=== PATIENT | female | born 1960 | race Caucasian/White ===

== ENCOUNTER → 2018-10-03 | Outpatient (CLI) | payer OTHER ==
--- NOTE | 2018-10-03 12:45 | XR ---
EXAMINATION TYPE: XR chest 2V DATE OF EXAM: 10/03/2018 COMPARISON: 05/04/2017 INDICATION: COPD TECHNIQUE: Frontal and lateral views of the chest are obtained. FINDINGS: The heart size is normal. The pulmonary vasculature is normal. The lungs are clear. IMPRESSION: 1. No acute pulmonary process.
== END | disposition home or self-care (01) ==
LOC: RADXRYALE 12:03
PROVIDERS: ATTEND Internal Medicine
DX: J44.9 Chronic obstructive pulmonary disease, unspecified (principal)
CPT/HCPCS: 71046

== ENCOUNTER → 2019-10-24 | Outpatient (CLI) | payer OTHER | END | disposition home or self-care (01) | LOC: LABWHC1 11:22 | PROVIDERS: ATTEND Internal Medicine | DX: R05 Cough (principal) ==

== ENCOUNTER → 2020-03-11 | Outpatient (CLI) | payer OTHER ==
--- NOTE | 2020-03-11 11:07 | XR ---
EXAMINATION TYPE: XR chest 2V DATE OF EXAM: 03/11/2020 COMPARISON: 10/03/18 HISTORY: Shortness of breath TECHNIQUE: Frontal and lateral views of the chest are obtained. FINDINGS: Scattered senescent parenchymal changes noted. Hyperinflation compatible with COPD. No evidence for infiltrate. No evidence for atelectasis. Heart size is stable. Mediastinal structures are stable and grossly unremarkable. No evidence for hilar prominence. Degenerative changes dorsal spine. IMPRESSION: 1. No evidence for acute pulmonary disease.
== END | disposition home or self-care (01) ==
LOC: RADXRYALE 10:45
PROVIDERS: ATTEND Internal Medicine
DX: R05 Cough (principal)
CPT/HCPCS: 71046

== ENCOUNTER → 2021-01-02 | Outpatient (CLI) | payer OTHER ==
--- NOTE | 2021-01-02 16:15 | XR ---
EXAMINATION TYPE: XR chest 2V DATE OF EXAM: 01/02/2021 COMPARISON: 03/11/2020 INDICATION: Chronic dyspnea from COPD TECHNIQUE: Frontal and lateral views of the chest are obtained. FINDINGS: The heart size is normal. The pulmonary vasculature is normal. The lungs are clear. IMPRESSION: 1. No acute pulmonary process.
== END | disposition home or self-care (01) ==
LOC: RADXRYALE 10:53
PROVIDERS: ATTEND Internal Medicine Sleep Medicine
DX: J44.9 Chronic obstructive pulmonary disease, unspecified (principal)
CPT/HCPCS: 71046

== ENCOUNTER 2021-12-01 10:51 | Emergency (ER) | payer OTHER ==
[2021-12-01] MEDS ORDERED: FAMOTIDINE 20 MG/2 ML VIAL IV STA (10:56)
[2021-12-01] MEDS ORDERED: diphenhydrAMINE 50 MG/ML 1 ML VIAL IVP STA (10:57)
[2021-12-01 11:02] VITALS: RESP 18; TEMP 98.1
--- NOTE | 2021-12-01 11:03 | ED ---
General Adult HPI - General Stated complaint: allergic reaction Time Seen by Provider: 12/01/21 10:51 Source: patient, EMS, RN notes reviewed Mode of arrival: EMS Limitations: no limitations - History of Present Illness Initial comments: 60-year-old female presents emergency Department via EMS from PCPs office for ALLERGIC reaction. Patient that she been having tomorrow nausea vomiting issues. States that she's gone last night took her Zofran EEG usual. Patient states that she started having upper lip swelling noticed this morning around 7 AM. She was outside prior to this. Patient called PCPs office in which she presented there few hours after symptoms started. Patient was given a shot of steroids by PCP, Benadryl by EMS. Patient states that she is starting to feel better she states her upper lip was swollen which remains a swollen, slightly itchy. She denies any difficulty breathing difficulty swallowing no tongue swelling. HEENT by EMS and police to be the felt there was a wound or puncture site at her upper lip. - Related Data Home Medications Medication Instructions Recorded Confirmed Diazepam [Valium] 10 mg PO BID PRN 01/15/16 02/06/16 Lovastatin [Mevacor] 40 mg PO HS 01/15/16 02/06/16 OLANZapine [ZyPREXA] 5 mg PO HS 01/15/16 02/06/16 OLANZapine [ZyPREXA] 20 mg PO HS 01/15/16 02/06/16 Omeprazole [PriLOSEC] 20 mg PO AC-BRKFST 01/15/16 02/06/16 buPROPion XL [Wellbutrin Xl] 150 mg PO QAM 01/15/16 02/06/16 gemfibroziL [Lopid] 600 mg PO AC-BID 01/15/16 02/06/16 lisinopriL [Zestril] 5 mg PO QAM 01/15/16 02/06/16 metFORMIN HCL [Glucophage] 1,000 mg PO BID 01/15/16 02/06/16 traZODone HCL [Desyrel] 100 mg PO HS 01/15/16 02/06/16 Previous Rx's Medication Instructions Recorded HYDROcodone/APAP 7.5-325MG [[place] 1 each PO Q4H PRN #60 tab 02/06/16 7.5] predniSONE 50 mg PO DAILY #3 tab 12/01/21 Allergies Allergy/AdvReac Type Severity Reaction Status Date / Time clindamycin HCl Allergy Rash/Hives Verified 12/01/21 11:01 [From Cleocin] clindamycin palmitate HCl Allergy Rash/Hives Verified 12/01/21 11:01 [From Cleocin] clindamycin phosphate Allergy Rash/Hives Verified 12/01/21 11:01 [From Cleocin] Review of Systems ROS Statement: Those systems with pertinent positive or pertinent negative responses have been documented in the HPI. ROS Other: All systems not noted in ROS Statement are negative. Past Medical History Past Medical History: Diabetes Mellitus, Hyperlipidemia Additional Past Medical History / Comment(s): NAUSEA FOR ABOUT A MONTH-VOMITING OFF & ON,LOOSE BLACK STOOL AT TIMES. HAS LOST 15 LBS IN A SHORT TIME WITHOUT TRYING History of Any Multi-Drug Resistant Organisms: None Reported Past Surgical History: Section, Tonsillectomy, Tubal Ligation Additional Past Surgical History / Comment(s): LAPAROSCOPIC, COLONOSCOPY X2 WITH POLYPS REMOVED Past Anesthesia/Blood Transfusion Reactions: No Reported Reaction Past Psychological History: Bipolar, Depression Past Alcohol Use History: Rare Additional Past Alcohol Use History / Comment(s): SMOKER SINCE AGE 14 -1- 1 1/2 PPD Past Drug Use History: None Reported - Past Family History Mother Family Medical History: Cancer, Diabetes Mellitus Additional Family Medical History / Comment(s): ESOPHAGEAL CA- LUNG CA Father Family Medical History: Hypertension Sister(s) Family Medical History: Cancer Additional Family Medical History / Comment(s): SKIN CA General Exam Limitations: no limitations General appearance: alert, in no apparent distress Head exam: Present: atraumatic, normocephalic, normal inspection Eye exam: Present: normal appearance, PERRL, EOMI. Absent: scleral icterus, conjunctival injection, periorbital swelling ENT exam: Present: mucous membranes moist, TM's normal bilaterally, normal external ear exam. Absent: normal oropharynx (Upper lip swelling noted small puncture wound, no tongue swelling no difficult to swan secretions there is some exudate posterior pharynx) Neck exam: Present: normal inspection, full ROM. Absent: tenderness, meningismus, lymphadenopathy Respiratory exam: Present: normal lung sounds bilaterally. Absent: respiratory distress, wheezes, rales, rhonchi, stridor Cardiovascular Exam: Present: regular rate, normal rhythm, normal heart sounds. Absent: systolic murmur, diastolic murmur, rubs, gallop, clicks Neurological exam: Present: alert Skin exam: Present: warm, dry, intact, normal color. Absent: rash Course Vital Signs 12/01/21 12/01/21 12/01/21 10:53 11:04 11:47 Temperature 98.1 F Pulse Rate 80 68 Respiratory 18 18 18 Rate Blood Pressure 138/74 118/79 O2 Sat by Pulse 98 97 Oximetry 12/01/21 12:35 Temperature Pulse Rate 76 Respiratory 18 Rate Blood Pressure 138/85 O2 Sat by Pulse 97 Oximetry Medical Decision Making - Medical Decision Making 60-year-old female presented for upper lip swelling. Patient has not had any worsening symptoms. Patient is stable at this time. It is concerning for probable Kyle inhibitor induced angioedema. Patient will be discharged is advised to discontinue KYLE inhibitor will contact her PCP regarding further medication changes. 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 Prescriptions: predniSONE 50 mg PO DAILY #3 tab Is patient prescribed a controlled substance at d/c from ED?: No Referrals: Pallavi English MD [Primary Care Provider] - 1-2 days Time of Disposition: 13:24
[2021-12-01] MEDS ORDERED: METOCLOPRAMIDE 5 MG/ML 2 ML VIAL IVP STA (11:58)
[2021-12-01 12:37] VITALS: BP 138/85; PULSE 76
== END 2021-12-01 13:33 | disposition home or self-care (01) ==
LOC: EC 10:51
DX: T78.3XXA Angioneurotic edema, initial encounter (principal); T46.4X5A Adverse effect of angiotensin-converting-enzyme inhibitors, initial encounter; E11.9 Type 2 diabetes mellitus without complications; E78.5 Hyperlipidemia, unspecified; F31.9 Bipolar disorder, unspecified; Z79.84 Long term (current) use of oral hypoglycemic drugs; Z79.899 Other long term (current) drug therapy
CPT/HCPCS: 99284; 96374; 96375 ×2; J1200; J2765

== ENCOUNTER → 2021-12-09 | Outpatient (CLI) | payer OTHER ==
[2021-12-09 18:32] LABS: African American GFR (CKD) 79.4 (60.0-200.0); Blood Urea Nitrogen 19.1 mg/dL (9.0-27.0); Non-African American GFR(CKD) 68.5 (60.0-200.0); Potassium 4.1 mmol/L (3.5-5.5)
== END | disposition home or self-care (01) ==
LOC: LABWHC1 11:20
PROVIDERS: ATTEND Internal Medicine
DX: Z00.00 Encounter for general adult medical examination without abnormal findings (principal); E87.5 Hyperkalemia; E83.52 Hypercalcemia
CPT/HCPCS: 36415; 82310; 82565; 83970; 84132; 84520

== ENCOUNTER 2022-09-14 04:17 | Observation (INO) | payer MEDICARE ==
[2022-09-14 04:24] VITALS: TEMP 98.2
[2022-09-14] MEDS ORDERED: IPRATROPIUM-ALBUTEROL 3 ML NEB INHALATION STA (04:38)
[2022-09-14] MEDS ORDERED: DEXAMETHASONE SOD PHOSPHATE 10 MG/ML 1 ML VIAL IVP STA (04:40)
[2022-09-14 05:01] LABS: Basophils % (A) 0 %; Eosinophils # (A) 0.3 k/uL (0-0.7); Eosinophils % (A) 3 %; HCT 46.8 % (34.0-46.0); HGB 15.4 gm/dL (11.4-16.0); Lymphocytes # (A) 1.4 k/uL (1.0-4.8); Lymphocytes % (A) 16 %; MCH 28.2 pg (25.0-35.0); MCHC 32.9 g/dL (31.0-37.0); MCV 85.7 fL (80.0-100.0); Mean Platelet Volume 8.5; Monocytes # (A) 0.3 k/uL (0-1.0); Monocytes % (A) 4 %; Neutrophils # (A) 6.8 k/uL (1.3-7.7); Neutrophils % (A) 76 %; Platelet Count 260 k/uL (150-450); RBC 5.46 m/uL (3.80-5.40); RDW 15.6 % (11.5-15.5); WBC 8.9 k/uL (3.8-10.6)
--- NOTE | 2022-09-14 05:11 | ED ---
General Adult HPI - General Chief complaint: Chest Pain Stated complaint: Chest Pain Time Seen by Provider: 09/14/22 04:25 Source: patient Mode of arrival: wheelchair Limitations: no limitations - History of Present Illness Initial comments: This is a 61-year-old female with a past medical history including COPD, major depressive disorder presented to the emergency department for left-sided chest pain. The patient stated that this chest pain is worse with deep breathing and stated that it is sharp in nature when she does take a deep breath. The patient stated that she has a dull ache without deep breathing and stated that the pain does not radiate. The patient did state that she had some wheezing noted that she gave her several breathing treatment with minimal relief. The patient denied any lightheadedness or dizziness as well as any pain or numbness down the left side of her arm or left jaw. The patient stated that she has never had pain like this before. - Related Data Home Medications Medication Instructions Recorded Confirmed Diazepam [Valium] 10 mg PO BID PRN 01/15/16 02/06/16 Lovastatin [Mevacor] 40 mg PO HS 01/15/16 02/06/16 OLANZapine [ZyPREXA] 5 mg PO HS 01/15/16 02/06/16 OLANZapine [ZyPREXA] 20 mg PO HS 01/15/16 02/06/16 Omeprazole [PriLOSEC] 20 mg PO AC-BRKFST 01/15/16 02/06/16 buPROPion XL [Wellbutrin Xl] 150 mg PO QAM 01/15/16 02/06/16 gemfibroziL [Lopid] 600 mg PO AC-BID 01/15/16 02/06/16 lisinopriL [Zestril] 5 mg PO QAM 01/15/16 02/06/16 metFORMIN HCL [Glucophage] 1,000 mg PO BID 01/15/16 02/06/16 traZODone HCL [Desyrel] 100 mg PO HS 01/15/16 02/06/16 Previous Rx's Medication Instructions Recorded HYDROcodone/APAP 7.5-325MG [[place] 1 each PO Q4H PRN #60 tab 02/06/16 7.5] predniSONE 50 mg PO DAILY #3 tab 12/01/21 Allergies Allergy/AdvReac Type Severity Reaction Status Date / Time clindamycin HCl Allergy Rash/Hives Verified 09/14/22 04:22 [From Cleocin] clindamycin palmitate HCl Allergy Rash/Hives Verified 09/14/22 04:22 [From Cleocin] clindamycin phosphate Allergy Rash/Hives Verified 09/14/22 04:22 [From Cleocin] lisinopril Allergy Anaphylaxis Verified 09/14/22 04:22 Review of Systems ROS Statement: Those systems with pertinent positive or pertinent negative responses have been documented in the HPI. ROS Other: All systems not noted in ROS Statement are negative. Past Medical History Past Medical History: Diabetes Mellitus, Hyperlipidemia Additional Past Medical History / Comment(s): NAUSEA FOR ABOUT A MONTH-VOMITING OFF & ON,LOOSE BLACK STOOL AT TIMES. HAS LOST 15 LBS IN A SHORT TIME WITHOUT TRYING History of Any Multi-Drug Resistant Organisms: None Reported Past Surgical History: Section, Tonsillectomy, Tubal Ligation Additional Past Surgical History / Comment(s): LAPAROSCOPIC, COLONOSCOPY X2 WITH POLYPS REMOVED Past Anesthesia/Blood Transfusion Reactions: No Reported Reaction Past Psychological History: Bipolar, Depression Past Alcohol Use History: Rare Past Drug Use History: None Reported - Past Family History Mother Family Medical History: Cancer, Diabetes Mellitus Additional Family Medical History / Comment(s): ESOPHAGEAL CA- LUNG CA Father Family Medical History: Hypertension Sister(s) Family Medical History: Cancer Additional Family Medical History / Comment(s): SKIN CA General Exam Limitations: no limitations General appearance: alert, in no apparent distress Head exam: Present: atraumatic, normocephalic, normal inspection Eye exam: Present: normal appearance, PERRL Pupils: Present: normal accommodation ENT exam: Present: normal exam, normal oropharynx, mucous membranes moist Neck exam: Present: normal inspection, full ROM Respiratory exam: Present: wheezes, decreased breath sounds Cardiovascular Exam: Present: regular rate, normal rhythm, normal heart sounds GI/Abdominal exam: Present: soft, normal bowel sounds Extremities exam: Present: normal inspection, full ROM Back exam: Present: normal inspection, full ROM Neurological exam: Present: alert, oriented X3, CN II-XII intact Psychiatric exam: Present: normal affect, normal mood Skin exam: Present: warm, dry Course Vital Signs 09/14/22 09/14/22 09/14/22 04:22 04:30 04:41 Temperature 98.2 F Pulse Rate 80 75 87 Respiratory 16 16 Rate Blood Pressure 158/79 O2 Sat by Pulse 97 98 Oximetry 09/14/22 05:00 Temperature Pulse Rate 88 Respiratory Rate Blood Pressure O2 Sat by Pulse Oximetry EKG Findings - EKG Comments: EKG Findings:: An EKG was obtained and was interpreted by myself showing a rate of 67, CT interval of 118, QRS duration of 86 and QTC of 417. This EKG showed a normal sinus rhythm with no ST segment elevation or depression noted. Medical Decision Making - Medical Decision Making Was pt. sent in by a medical professional or institution (, MOE, VETERINARY PRACTICE MANAGER, urgent care, hospital, or intermediate...) When possible be specific @ -No Did you speak to anyone other than the patient for history (EMS, parent, family, police, friend...)? What history was obtained from this source @ -No Did you review nursing and triage notes (agree or disagree)? Why? @ -I reviewed and agree with nursing and triage notes Were old charts reviewed (outside hosp., previous admission, EMS record, old EKG, old radiological studies, urgent care reports/EKG's, intermediate records)? Report findings @ -No old charts were reviewed Differential Diagnosis (chest pain, altered mental status, abdominal pain women, abdominal pain men, vaginal bleeding, weakness, fever, dyspnea, syncope, head ache, dizziness, GI bleed, back pain, seizure, CVA, palpatations, mental health)? @ -ACS, pneumonia, COPD exacerbation EKG interpreted by me (3pts min.). @ -As above X-rays interpreted by me (1pt min.). @ -Chest x-ray was obtained and was interpreted by myself showing chronic emphysematous change without acute coronary process. There is possible new left basilar pulmonary nodule. CT interpreted by me (1pt min.). @ -None done U/S interpreted by me (1pt. min.). @ -None done What testing was considered but not performed or refused? (CT, X-rays, U/S, labs)? Why? @ -None What meds were considered but not given or refused? Why? @ -None Did you discuss the management of the patient with other professionals (professionals i.e. , MOE, VETERINARY PRACTICE MANAGER, lab, RT, psych nurse, social worker masters, yolk spray drier, teacher, safety and security officer, case consultant)? Give summary @ -Yes, admitting team was contacted regarding patient admission Was smoking cessation discussed for >3mins.? @ -Yes Was critical care preformed (if so, how long)? @ -No Were there social determinants of health that impacted care today? How? (Homelessness, low income, unemployed, alcoholism, drug addiction, transportation, low edu. Level, literacy, decrease access to med. care, nursing home, rehab)? @ -No Was there de-escalation of care discussed even if they declined (Discuss DNR or withdrawal of care, Hospice)? DNR status @ -No What co-morbidities impacted this encounter? (DM, HTN, Smoking, COPD, CAD, Cancer, CVA, ARF, Chemo, Hep., AIDS, mental health diagnosis, sleep apnea, morbid obesity)? @ -COPD, anxiety, major depressive disorder Was patient admitted / discharged? Hospital course, mention meds given and route, prescriptions, significant lab abnormalities, going to OR and other pertinent info. @ -The patient was seen and evaluated in emergency department. Physical exam, the patient was resting in bed in mild distress secondary to left-sided chest pain. Vital signs admission were stable. The patient did have wheezing on exam likely a mild COPD exacerbation however the patient had continued left-sided chest pain upon reevaluation. Laboratory workup was within normal limits and due to the patient's continued pain, the patient did agree to being observed for cardiology evaluation. The patient was placed observation in stable condition. Undiagnosed new problem with uncertain prognosis? @ -No Drug Therapy requiring intensive monitoring for toxicity (Heparin, Nitro, Insulin, Cardizem)? @ -No Were any procedures done? @ -No Diagnosis/symptom? @ -Chest pain, rule out ACS Acute, or Chronic, or Acute on Chronic? @ -Acute Uncomplicated (without systemic symptoms) or Complicated (systemic symptoms)? @ -Complicated Side effects of treatment? @ -No Exacerbation, Progression, or Severe Exacerbation? @ -No Poses a threat to life or bodily function? How? (Chest pain, [place], [place], pneumonia, PE, COPD, DKA, ARF, appy, cholecystitis, CVA, Diverticulitis, Homicidal, Suicidal, threat to staff... and all critical care pts) @ -Yes, ACS can lead to end organ damage and possible . Diagnosis/symptom? @ -COPD exacerbation Acute, or Chronic, or Acute on Chronic? @ -Acute Uncomplicated (without systemic symptoms) or Complicated (systemic symptoms)? @ -Uncomplicated Side effects of treatment? @ -none Exacerbation, Progression, or Severe Exacerbation] @ -Mild exacerbation Poses a threat to life or bodily function? @ -no - Lab Data Result diagrams: 09/14/22 04:36 09/14/22 04:36 Lab Results 09/14/22 09/14/22 09/14/22 Range/Units 04:36 04:36 04:36 WBC 8.9 (3.8-10.6) k/uL RBC 5.46 H (3.80-5.40) m/uL Hgb 15.4 (11.4-16.0) gm/dL Hct 46.8 H (34.0-46.0) % MCV 85.7 (80.0-100.0) fL MCH 28.2 (25.0-35.0) pg MCHC 32.9 (31.0-37.0) g/dL RDW 15.6 H (11.5-15.5) % Plt Count 260 (150-450) k/uL MPV 8.5 Neutrophils % 76 % Lymphocytes % 16 % Monocytes % 4 % Eosinophils % 3 % Basophils % 0 % Neutrophils # 6.8 (1.3-7.7) k/uL Lymphocytes # 1.4 (1.0-4.8) k/uL Monocytes # 0.3 (0-1.0) k/uL Eosinophils # 0.3 (0-0.7) k/uL Basophils # 0.0 (0-0.2) k/uL PT 9.7 (9.0-12.0) sec INR 0.9 (<1.2) APTT 24.7 (22.0-30.0) sec D-Dimer 0.48 (<0.60) mg/L FEU Sodium 142 (137-145) mmol/L Potassium 4.4 (3.5-5.1) mmol/L Chloride 108 H (98-107) mmol/L Carbon Dioxide 19 L (22-30) mmol/L Anion Gap 15 mmol/L BUN 17 (7-17) mg/dL Creatinine 0.90 (0.52-1.04) mg/dL Est GFR (CKD-EPI)AfAm 79 (>60 ml/min/1.73 sqM) Est GFR (CKD-EPI)NonAf 69 (>60 ml/min/1.73 sqM) Glucose 108 H (74-99) mg/dL Calcium 10.5 H (8.4-10.2) mg/dL Magnesium 1.8 (1.6-2.3) mg/dL Total Bilirubin 0.6 (0.2-1.3) mg/dL AST 22 (14-36) U/L ALT 19 (4-34) U/L Alkaline Phosphatase 168 H (38-126) U/L Troponin I (0.000-0.034) ng/mL Total Protein 8.5 H (6.3-8.2) g/dL Albumin 5.0 (3.5-5.0) g/dL 09/14/22 Range/Units 04:36 WBC (3.8-10.6) k/uL RBC (3.80-5.40) m/uL Hgb (11.4-16.0) gm/dL Hct (34.0-46.0) % MCV (80.0-100.0) fL MCH (25.0-35.0) pg MCHC (31.0-37.0) g/dL RDW (11.5-15.5) % Plt Count (150-450) k/uL MPV Neutrophils % % Lymphocytes % % Monocytes % % Eosinophils % % Basophils % % Neutrophils # (1.3-7.7) k/uL Lymphocytes # (1.0-4.8) k/uL Monocytes # (0-1.0) k/uL Eosinophils # (0-0.7) k/uL Basophils # (0-0.2) k/uL PT (9.0-12.0) sec INR (<1.2) APTT (22.0-30.0) sec D-Dimer (<0.60) mg/L FEU Sodium (137-145) mmol/L Potassium (3.5-5.1) mmol/L Chloride (98-107) mmol/L Carbon Dioxide (22-30) mmol/L Anion Gap mmol/L BUN (7-17) mg/dL Creatinine (0.52-1.04) mg/dL Est GFR (CKD-EPI)AfAm (>60 ml/min/1.73 sqM) Est GFR (CKD-EPI)NonAf (>60 ml/min/1.73 sqM) Glucose (74-99) mg/dL Calcium (8.4-10.2) mg/dL Magnesium (1.6-2.3) mg/dL Total Bilirubin (0.2-1.3) mg/dL AST (14-36) U/L ALT (4-34) U/L Alkaline Phosphatase (38-126) U/L Troponin I <0.012 (0.000-0.034) ng/mL Total Protein (6.3-8.2) g/dL Albumin (3.5-5.0) g/dL Disposition Clinical Impression: Chest pain, COPD exacerbation Disposition: ADMITTED IP TO THIS HOSP Condition: Stable Is patient prescribed a controlled substance at d/c from ED?: No Referrals: Fox Barker MD [STAFF PHYSICIAN] - 1-2 days Time of Disposition: 06:00 Decision to Admit Reason: Admit from EC Decision Date: 09/14/22 Decision Time: 06:00
[2022-09-14 05:12] LABS: Calcium 10.5 mg/dL (8.4-10.2); Magnesium 1.8 mg/dL (1.6-2.3); Potassium 4.4 mmol/L (3.5-5.1); Total Bilirubin 0.6 mg/dL (0.2-1.3); Total Protein 8.5 g/dL (6.3-8.2)
[2022-09-14 05:24] LABS: INR 0.9 (<1.2); Partial Thromboplastin Time 24.7 sec (22.0-30.0); Prothrombin Time 9.7 sec (9.0-12.0)
--- NOTE | 2022-09-14 05:45 | XR ---
EXAMINATION TYPE: XR chest 2V DATE OF EXAM: 09/14/2022 COMPARISON: Chest x-ray July 29, 2022 HISTORY: Chest pain. TECHNIQUE: Frontal and lateral views of the chest are obtained. FINDINGS: There is chronic emphysematous change redemonstrated without suspicious new focal air spac e opacity, pleural effusion, or pneumothorax seen. The cardiac silhouette size is stable and within normal limits. Slightly more prominence along inferior left heart border. Consider chest CT to exclud e subtle nodule at this level. The osseous structures are intact. Overlying EKG leads on current stud y. IMPRESSION: Chronic emphysematous change without acute pulmonary process. Possible new left basilar pulmonary nodule. Follow-up advised.
[2022-09-14] MEDS ORDERED: NALOXONE 0.4 MG/ML 1 ML VIAL IV PRN (06:06)
[2022-09-14] MEDS ORDERED: DOBUTamine DRIP for NUC MED 500 MG in DEXTROSE/WATER 1 250ML.BAG IV PRN (07:53)
[2022-09-14 08:47] LABS: Glucose,Whole Blood 132 mg/dL (70-110)
[2022-09-14] MEDS ORDERED: diazePAM 5 MG TAB PO PRN (09:32)
[2022-09-14] MEDS ORDERED: DEXTROSE 50% SYRINGE 50 ML IVP PRN ×2 (09:37)
[2022-09-14] MEDS ORDERED: FENOFIBRATE 160 MG TAB PO SCH (10:00)
[2022-09-14 11:20] VITALS: BP 142/68; PULSE 78; RESP 31
--- NOTE | 2022-09-14 12:03 | CA ---
Transthoracic Echo Report Name: Sarah Beth Arshad Age: 61 Gender: F : 1960 Exam Date: 09/14/2022 10:03 Exam Location: [facility] Ht (in): 62 Wt (lb): 143 Ordering Physician: Edmar Kolb MD ([id number]) Attending/Referring Phys: Cortes JOVEL [employer] Procedure CPT: Indications: Chest Pain Cardiac Hx: Synd. Tietze; Lumbago Technical Quality: Fair Contrast 1: Total Dose (mL): Contrast 2: Total Dose (mL): MEASUREMENTS (Male / Female) Normal Values 2D ECHO LV Diastolic Diameter PLAX 5.1 cm 4.2 - 5.9 / 3.9 - 5.3 cm LV Systolic Diameter PLAX 3.3 cm LV Fractional Shortening PLAX 34.5 % IVS Diastolic Thickness 0.9 cm 0.6 - 1.0 / 0.6 - 0.9 cm IVS Systolic Thickness 1.3 cm LVPW Diastolic Thickness 1.0 cm 0.6 - 1.0 / 0.6 - 0.9 cm LVPW Systolic Thickness 1.6 cm LV Relative Wall Thickness 0.4 LVOT Diameter 1.8 cm LA Systolic Diameter LX 2.8 cm 3.0 - 4.0 / 2.7 - 3.8 cm LV Diastolic Volume MOD BP 60.4 cm??? 67 - 155 / 56 - 104 cm??? LV Systolic Volume MOD BP 24.6 cm??? 22 - 58 / 19 - 49 cm??? LV Ejection Fraction MOD BP 59.2 % >= 55 % LV Stroke Volume MOD BP 35.8 cm??? LV Diastolic Volume MOD 4C 56.5 cm??? LV Systolic Volume MOD 4C 24.0 cm??? LV Ejection Fraction MOD 4C 57.6 % LV Stroke Volume MOD 4C 32.5 cm??? LV Diastolic Length 4C 6.1 cm LV Systolic Length 4C 5.1 cm LV Diastolic Volume MOD 2C 54.7 cm??? LV Systolic Volume MOD 2C 23.2 cm??? LV Ejection Fraction MOD 2C 57.6 % LV Stroke Volume MOD 2C 31.5 cm??? LV Diastolic Length 2C 7.2 cm LV Systolic Length 2C 5.6 cm M-MODE Aortic Root Diameter MM 2.8 cm LA Systolic Diameter MM 2.6 cm LA Ao Ratio MM 0.9 MV E Point Septal Separation 1.2 cm AV Cusp Separation MM 1.5 cm DOPPLER AV Peak Velocity 131.4 cm/s AV Peak Gradient 6.9 mmHg LVOT Peak Velocity 114.3 cm/s LVOT Peak Gradient 5.2 mmHg AV Area Cont Eq pk 2.1 cm??? MV Deceleration Mccreary 230.1 cm/s??? Mitral E Point Velocity 51.5 cm/s Mitral A Point Velocity 70.7 cm/s Mitral E to A Ratio 0.7 MV Deceleration Time 224.0 ms MV E' Velocity 9.8 cm/s Mitral E to MV E' Ratio 5.3 TR Peak Velocity 99.9 cm/s TR Peak Gradient 4.0 mmHg Right Ventricular Systolic Press 9.0 mmHg PV Peak Velocity 111.1 cm/s PV Peak Gradient 4.9 mmHg FINDINGS Left Ventricle Left ventricular ejection fraction is estimated at 50-55 %. Grade 1 diastolic dysfunction. Right Ventricle Normal right ventricular size and function. Right Atrium Normal right atrial size. Left Atrium Normal left atrial size. Mitral Valve Mitral valve thickened. Trace to mild mitral regurgitation. Aortic Valve Trileaflet aortic valve. Diffuse thickening (sclerosis) of the aortic valve cusps without reduced excursion. Tricuspid Valve Mild tricuspid regurgitation. Pulmonic Valve Pulmonic valve not well visualized. Pericardium Normal pericardium. No pericardial effusion. Aorta Normal size aortic root and proximal ascending aorta. CONCLUSIONS Normal LV systolic function Previewed by: Dr. Edmar Kolb MD (Electronically Signed) Final Date: 14 September 2022 12:02
[2022-09-14] MEDS ORDERED: INSULIN ASPART (NovoLOG) 100 UNIT/ML VIAL SQ SCH (12:30)
--- NOTE | 2022-09-14 12:43 | P.HPIM ---
History of Present Illness H&P Date: 09/14/22 History of present illness; patient is 61-year-old lady with past medical significant for COPD, major depression who presented to the ER because of chest pain. Patient stated that this pain started yesterday, central in location, sharp in nature and exacerbated by taking deep breaths, patient stated that pain was radiating to left arm and jaw. Patient has been noticing shortness of breath, stated that she gets short of breath on minimal exertion and was wheezing and gave breathing treatment without any relief. Because of this Chest Pain and Shortness of Breath, Patient Came to the ER. Initial lab work done in the ER showed WBC 8.9, hemoglobin 8.4, platelet count 260, INR 0.9, sodium 142, potassium 4.4, BUN 17, creatinine 0.9, initial troponin 0.012 Initial chest x-ray showed chronic emphysematous changes without acute pulmonary process Initial EKG done did not show any acute segment changes or T-wave inversions REVIEW OF SYSTEMS: CONSTITUTIONAL: No fever, no malaise, no fatigue. HEENT: No recent visual problems or hearing problems. Denied any sore throat. CARDIOVASCULAR: As mentioned in HPI PULMONARY: No cough, no hemoptysis. GASTROINTESTINAL: No diarrhea, no nausea, no vomiting, no abdominal pain. NEUROLOGICAL: No headaches, no weakness, no numbness. HEMATOLOGICAL: Denies any bleeding or petechiae. GENITOURINARY: Denies any burning micturition, frequency, or urgency. MUSCULOSKELETAL/RHEUMATOLOGICAL: Denies any joint pain, swelling, or any muscle pain. ENDOCRINE: Denies any polyuria or polydipsia. The rest of the 14-point review of systems is negative. PHYSICAL EXAMINATION: GENERAL: The patient is alert and oriented x3, not in any acute distress. Well developed, well nourished. HEENT: Pupils are round and equally reacting to light. EOMI. No scleral icterus. No conjunctival pallor. Normocephalic, atraumatic. No pharyngeal erythema. No thyromegaly. CARDIOVASCULAR: S1 and S2 present. No murmurs, rubs, or gallops. PULMONARY: Chest is clear to auscultation, no wheezing or crackles. ABDOMEN: Soft, nontender, nondistended, normoactive bowel sounds. No palpable organomegaly. MUSCULOSKELETAL: No joint swelling or deformity. EXTREMITIES: No cyanosis, clubbing, or pedal edema. NEUROLOGICAL: Gross neurological examination did not reveal any focal deficits. SKIN: No rashes. Assessment and plan Chest pain COPD Major depression Plan; Monitor vital signs Monitor CBC Monitor CMP Continue telemetry monitoring Trend troponins 2-D echo ordered Resume home meds Cardiology consult DVT prophylaxis: Past Medical History Past Medical History: Diabetes Mellitus, Hyperlipidemia Additional Past Medical History / Comment(s): NAUSEA FOR ABOUT A MONTH-VOMITING OFF & ON,LOOSE BLACK STOOL AT TIMES. HAS LOST 15 LBS IN A SHORT TIME WITHOUT TRYING History of Any Multi-Drug Resistant Organisms: None Reported Past Surgical History: Section, Tonsillectomy, Tubal Ligation Additional Past Surgical History / Comment(s): LAPAROSCOPIC, COLONOSCOPY X2 WITH POLYPS REMOVED Past Anesthesia/Blood Transfusion Reactions: No Reported Reaction Past Psychological History: Bipolar, Depression Past Alcohol Use History: Rare Past Drug Use History: None Reported - Past Family History Mother Family Medical History: Cancer, Diabetes Mellitus Additional Family Medical History / Comment(s): ESOPHAGEAL CA- LUNG CA Father Family Medical History: Hypertension Sister(s) Family Medical History: Cancer Additional Family Medical History / Comment(s): SKIN CA Medications and Allergies Home Medications Medication Instructions Recorded Confirmed Type Diazepam [Valium] 10 mg PO BID PRN 01/15/16 09/14/22 History Lovastatin [Mevacor] 40 mg PO DAILY 01/15/16 09/14/22 History gemfibroziL [Lopid] 600 mg PO AC-BID 01/15/16 09/14/22 History Dapagliflozin Propanediol [Farxiga] 10 mg PO DAILY 09/14/22 09/14/22 History FLUoxetine HCL [PROzac] 40 mg PO DAILY 09/14/22 09/14/22 History Meloxicam [Mobic] 7.5 mg PO DAILY 09/14/22 09/14/22 History OLANZapine [ZyPREXA] 15 mg PO DAILY 09/14/22 09/14/22 History Pantoprazole [Protonix] 40 mg PO DAILY 09/14/22 09/14/22 History Pioglitazone [Actos] 45 mg PO DAILY 09/14/22 09/14/22 History Tirzepatide [Mounjaro] 2.5 mg SQ SA 09/14/22 09/14/22 History buPROPion XL [Wellbutrin XL] 300 mg PO PC-LUNCH 09/14/22 09/14/22 History metFORMIN HCL 500 mg PO BID 09/14/22 09/14/22 History traZODone HCL [Desyrel] 50 - 100 mg PO HS PRN 09/14/22 09/14/22 History Allergies Allergy/AdvReac Type Severity Reaction Status Date / Time clindamycin HCl Allergy Rash/Hives Verified 09/14/22 07:22 [From Cleocin] clindamycin palmitate HCl Allergy Rash/Hives Verified 09/14/22 07:22 [From Cleocin] clindamycin phosphate Allergy Rash/Hives Verified 09/14/22 07:22 [From Cleocin] lisinopril Allergy Anaphylaxis Verified 09/14/22 07:22 Physical Exam Vitals: Vital Signs Temp Pulse Resp BP Pulse Ox 09/14/22 08:20 71 18 142/67 97 09/14/22 07:23 77 18 140/75 92 L 09/14/22 05:00 88 09/14/22 04:41 87 09/14/22 04:30 75 16 98 09/14/22 04:22 98.2 F 80 16 158/79 97 Intake and Output 09/13/22 09/14/22 09/14/22 22:59 06:59 14:59 Other: Weight 64.864 kg Results CBC & Chem 7: 09/14/22 04:36 09/14/22 04:36 Labs: Abnormal Lab Results - Last 24 Hours (Table) 09/14/22 09/14/22 09/14/22 Range/Units 04:36 04:36 08:46 RBC 5.46 H (3.80-5.40) m/uL Hct 46.8 H (34.0-46.0) % RDW 15.6 H (11.5-15.5) % Chloride 108 H (98-107) mmol/L Carbon Dioxide 19 L (22-30) mmol/L Glucose 108 H (74-99) mg/dL POC Glucose (mg/dL) 132 H (70-110) mg/dL Calcium 10.5 H (8.4-10.2) mg/dL Alkaline Phosphatase 168 H (38-126) U/L Total Protein 8.5 H (6.3-8.2) g/dL
[2022-09-14] MEDS ORDERED: buPROPion XL 300 MG TAB.ER.24H PO SCH (13:30)
--- NOTE | 2022-09-14 23:22 | CONS ---
CONSULTATION CHIEF COMPLAINT: Chest pain. HISTORY OF PRESENT ILLNESS: Sarah Beth is a 61-year-old lady with history of diabetes, dyslipidemia, comes to hospital complaining of chest pain. Her chest discomfort is moderate to severe in intensity. At times, she is almost crying as a result of the pain. It is a stabbing pain on the left side. The patient gets worse when she coughs or takes a deep breath in. This pain started over the last several days. The patient apparently had a fall and had some musculoskeletal injury involving the left side of her chest. At the time of my evaluation, the patient is comfortable at rest and is free of symptoms. EKG shows sinus rhythm, normal axis, normal intervals. D-dimer is negative. Two sets of troponins are negative. The patient's chest pain seems clearly musculoskeletal. However, given the multiple coronary risk factors, I am going to obtain a stress test on her for definitive evaluation. PAST MEDICAL HISTORY: Significant for hypertension, diabetes, and dyslipidemia. MEDICATIONS: At home included, 1. Actos. 2. Protonix. 3. Farxiga. 4. Prozac. 5. Mevacor. 6. Valium. 7. Lopid. ALLERGIES: To clindamycin and lisinopril. FAMILY HISTORY: Negative for premature coronary artery disease. SOCIAL HISTORY: Negative for current smoking, EtOH abuse, or drug abuse. REVIEW OF SYSTEMS: review of systems has been performed. Pertinents are as documented. PHYSICAL EXAMINATION: GENERAL: Comfortable at rest. VITAL SIGNS: Stable. NECK: There is no jugular venous distention. Carotid upstroke is normal. There is no bruit. CHEST: Reveals good air entry bilaterally. HEART: Reveals first and second heart sounds. No gallop. No murmur. No rub. ABDOMEN: Soft, nontender. EXTREMITIES: Did not reveal any edema. Peripheral pulses are felt. LABORATORY DATA: Labs show that the hemoglobin is 15.4, platelet count is 260, potassium is 4.4. Troponins are negative. ASSESSMENT: Precordial chest pain, rule out coronary artery disease. PLAN: The patient will have an echo and stress test. If these are unremarkable, she will be discharged home. Chest discomfort seems musculoskeletal. MMODL / IJN: [id number] /
[2022-09-15] MEDS ORDERED: ATORVASTATIN 10 MG TAB PO SCH (09:00)
[2022-09-15] MEDS ORDERED: PANTOPRAZOLE 40 MG TABLET PO SCH (09:00)
[2022-09-15] MEDS ORDERED: FLUoxetine HCL 20 MG CAP PO SCH (09:00)
[2022-09-15] MEDS ORDERED: OLANZapine 5 MG TAB PO SCH (09:00)
== END 2022-09-14 11:20 | disposition left against medical advice (07) ==
LOC: EC 04:17 → 6NMEDSUR 06:06
PROVIDERS: ADMIT Hospitalist; ATTEND Hospitalist
DX: R07.2 Precordial pain (principal); J44.9 Chronic obstructive pulmonary disease, unspecified; E11.9 Type 2 diabetes mellitus without complications; E78.5 Hyperlipidemia, unspecified; R63.4 Abnormal weight loss; Z53.29 Procedure and treatment not carried out because of patient's decision for other reasons; Z98.891 History of uterine scar from previous surgery; Z98.51 Tubal ligation status; Z86.010 Personal history of colon polyps; Z98.890 Other specified postprocedural states; F31.9 Bipolar disorder, unspecified; Z83.3 Family history of diabetes mellitus; Z80.0 Family history of malignant neoplasm of digestive organs; Z82.49 Family history of ischemic heart disease and other diseases of the circulatory system; Z80.8 Family history of malignant neoplasm of other organs or systems; Z80.1 Family history of malignant neoplasm of trachea, bronchus and lung; Z79.84 Long term (current) use of oral hypoglycemic drugs; Z79.52 Long term (current) use of systemic steroids; Z79.899 Other long term (current) drug therapy; Z88.8 Allergy status to other drugs, medicaments and biological substances; Z88.1 Allergy status to other antibiotic agents
CPT/HCPCS: 96374; 99285; 36415; 94640; 93005; 93306; 85379; 80053; 83735; 84484; 85025; 85610; 85730; 71046; G0378; J1100

== ENCOUNTER → 2023-07-28 | Outpatient (CLI) | payer MEDICARE ==
[2023-07-28 08:54] VITALS: BP 132/68; PULSE 64; RESP 15; TEMP 98.9
--- NOTE | 2023-07-28 14:15 | P.PAINPG ---
Objective - Vital Signs Vital signs: Intake & Output 07/27/23 07/28/23 07/28/23 18:59 06:59 18:59 Weight 63.503 kg PQRS Measure Charge Sheet Comment: HISTORY OF PRESENT ILLNESS: A 62 yr old female as a referral from [facility] presents today w severe and chronic LBP x 1 yr secondary to DDD, spondylosis and facet arthropathy without myelopathy for evaluation. Pt states pain level is provoked at 10 /10 in intensity, constant, localized in the lower lumbar spine, predominantly axial, dull in character w occasional shooting pain towards the buttocks and LEs. Pain is provoked by bending. Pain is alleviated by PT x 6 wks which ended in Feb 2023, chiropractic treatments in the past, heat, medications (Flexeril, Ketorolac, Ibu), BioFreeze topical, repositioning and rest. Oswestry axial pain score at 25. PMH: OA, NIDDM II, Hyperlipidemia, MDD/ Bipolar Disorder PSH: Laparoscopic Cholecystectomy (2016), Colonoscopy x2, Section, Tonsillectomy, Tubal Ligation SH: Hx of tobacco use, Rare ETOH use, No illicit drug use FH: Mo- Esophageal CA/ Lung CA. Fa- CAD. Sis- Skin CA All: See list Meds: See list REVIEW OF ORGAN SYSTEMS: CONSTITUTIONAL: No fevers or chills. No recent weight loss. NEUROLOGICAL: + numbness and tingling along the distal extremities. No seizure disorders or headaches. MUSCULOSKELETAL: + pain PSYCHIATRIC: Denies current depression or suicidal thoughts. Physical Examinations : Constitutional : Cooperative , not in acute distress . Neurologic : Cranial nerve II to XII intact. No focal neurological deficits. Psychiatric : alert & oriented x 3. Matching mood & appropriate affect. Judgment & insight intact. Musculoskeletal : Cervical Spine Motor strength in the deltoid and biceps: Normal right side. Normal Left side Motor strength biceps and the wrist extensors: Normal right side . Normal left side Motor strength in the triceps muscle: Normal right side. Normal left side Deep tendon reflexes: Normal at the biceps. Normal at Brachioradialis. Normal at triceps Vertebral body tenderness to deep palpation over Cervical facet loading test: positive bilaterally Spurling test: positive bilaterally Neck distraction test: positive bilate rally Marybel sign: positive bilaterally Lumbar spine Motor strength lower extremities ,thigh and legs 5/5 Right side , 5/5 Left side Deep tendon reflexes : Normal Knee Jerk. Normal Ankle Jerk Vertebral body tenderness over L4 Martin Test positive Lumbar facet Loading Test: positive R ight / positive Left Range of motion of the lumbar spine Flexion 30 degrees, extension 10 degrees Straight Leg Raise test: Left/ Right positive at <35 degrees Ronda test: positive right / positive left. Severe tenderness over the Sacroiliac joint on the Right / Left sides Gaenslen test: positive bilaterally Seated flexion test: positive bilaterally. Sacral spine : Severe tenderness over the Sacroiliac joint: right side / left side Range of motion: Flexion of the lumbar spine <60 degrees Range of motion: Extension of the lumbar spine <20 degrees Gaenslen's Test positive Ronda test: positive right side / left side Thigh Thrust Test Sacral Thrust Test Imaging: MRI noncontrast of the lumbar spine from 01/01/2023 reviewed Assessment/ Plan : Lumbar DDD Recommendation of MOHIT L4-L5 #1. May need a series of injections for optimal pain relief. Risks, benefits of procedure discussed and patient verbalized understanding. Admits to anti- coagulant use or medical history of diabetes. Protocol for discontinuation/ continuation of medications keagan procedure discussed. All questions answered. I have spent greater than 30 minutes on patient care today. Dr Perdomo was available by phone for the evaluation of this patient. The time was used to review the medical records including relevant urine studies and Prescription history (MAPs), review of the available imaging, evaluation and examination of the patient, coordination of care with the medical staff and if applicable referring physicians, as well as creation of the medical record PQRS Narrative: Smoking Status Current every day smoker Home Medications: Ambulatory Orders Diazepam [Valium] 10 mg PO BID PRN 01/15/16 Lovastatin [Mevacor] 40 mg PO DAILY 01/15/16 gemfibroziL [Lopid] 600 mg PO AC-BID 01/15/16 Dapagliflozin Propanediol [Farxiga] 10 mg PO DAILY 09/14/22 FLUoxetine HCL [PROzac] 40 mg PO DAILY 09/14/22 Meloxicam [Mobic] 7.5 mg PO DAILY 09/14/22 OLANZapine [ZyPREXA] 15 mg PO DAILY 09/14/22 Pantoprazole [Protonix] 40 mg PO DAILY 09/14/22 Pioglitazone [Actos] 45 mg PO DAILY 09/14/22 Tirzepatide [Mounjaro] 2.5 mg SQ SA 09/14/22 buPROPion XL [Wellbutrin XL] 300 mg PO PC-LUNCH 09/14/22 metFORMIN HCL 500 mg PO BID 09/14/22 traZODone HCL [Desyrel] 50 - 100 mg PO HS PRN 09/14/22 Controlled Substance Measures - Controlled Substance Measures Is patient prescribed a controlled substance at discharge?: No
== END ==
LOC: PNWHC3 07:56
PROVIDERS: ATTEND Specialist
DX: M51.36 Other intervertebral disc degeneration, lumbar region (principal); M47.816 Spondylosis without myelopathy or radiculopathy, lumbar region; F17.200 Nicotine dependence, unspecified, uncomplicated; M19.90 Unspecified osteoarthritis, unspecified site; E11.9 Type 2 diabetes mellitus without complications; E78.5 Hyperlipidemia, unspecified; F31.9 Bipolar disorder, unspecified; Z79.84 Long term (current) use of oral hypoglycemic drugs; Z88.1 Allergy status to other antibiotic agents; Z88.8 Allergy status to other drugs, medicaments and biological substances; Z79.85 Long-term (current) use of injectable non-insulin antidiabetic drugs
CPT/HCPCS: 99211

== ENCOUNTER 2023-08-30 07:27 | Day surgery (SDC) | payer MEDICARE ==
[2023-08-23 16:03] VITALS: BMI 25.0
[2023-08-30 07:50] LABS: Glucose,Whole Blood 113 mg/dL (70-110)
[2023-08-30] MEDS ORDERED: IOPAMIDOL M200 10 ML VIAL ONE (07:59)
[2023-08-30] MEDS ORDERED: methylPREDNISolone ACETATE 40 MG/ML 1 ML VIAL ONE (07:59)
[2023-08-30 08:03] VITALS: TEMP 97.7
--- NOTE | 2023-08-30 08:13 | P.PCN ---
Date of Procedure: 08/30/23 Description of Procedure: PREOPERATIVE DIAGNOSIS: lumbar radiculopathy POSTOPERATIVE DIAGNOSIS: Lumbar radiculopathy PROCEDURE 1. Lumbar epidural steroid injection under fluoroscopic guidance at the L4-L5 level. 2. Lumbar epidurogram. Imaging: Fluoroscopy was used, images where saved to the medical record ANESTHESIA: Patient re-evaluated immediately prior to sedation local only EBL: Minimal PROCEDURE INDICATION: The patient with low back pain and radiculitis symptoms unresponsive to conservative treatment. Fluoroscopy was used to optimize visualization of the needle placement and to maximize safety. PROCEDURE DESCRIPTION / TECHNIQUE: The patient was seen and identified in the preoperative area. Risks, benefits, complications including but not limited to infections, bleeding, allergic reaction to medications, nerve damage and incomplete pain relief, as well as alternatives to the procedure were discussed with the patient. The patient agreed to proceed with the procedure and signed the consent. IV was started if indicated above, and vital signs were stable. Patient was taken to the OR and time out was completed. The patient was placed in the prone position on procedure table and a pillow was placed under the abdomen to reduce lumbar lordosis. The lumbosacral area was prepped and draped in the usual sterile fashion. Vitals were closely monitored during the procedure. Using anterior-posterior fluoroscopy, the L4-L5 interlaminar space was identified and the skin over this site was marked and then infiltrated with 1% lidocaine subcutaneously. Subsequently, a 20-gauge Tuohy epidural needle was inserted and advanced toward the epidural space using the Loss of resistance technique and guided by AP and lateral fluoroscopy. The correct needle position in the epidural space was verified with the injection of 1 mL of Omnipaque 180 contrast to observe an acceptable epidurogram, after negative aspiration for blood and CSF and in the absence of paresthesias. Again after negative aspiration, a 3 ml mixture containing 40mg of depomedrol and 2 ml of preservative free Normal Saline was injected and a washout of epidurogram was seen. Needle was withdrawn intact, skin was cleansed, and bandages were applied. COMPLICATIONS: None DISPOSITION / PLANS: The patient was placed in a supine position and transferred to the recovery area in a stable condition for observation. There was no evidence of lower extremity motor or sensory deficit after the procedure. Pat ient was discharged from the recovery room after meeting discharge criteria. Home discharge instructions were given to the patient by the staff. The patient was reexamined prior to discharge. The patient will follow up as directed.
[2023-08-30 08:23] LABS: Glucose,Whole Blood 116 mg/dL (70-110)
--- NOTE | 2023-08-30 08:36 | FL ---
Fluoroscopy History: BOB ROJAS WITH PAIN MANAGEMENT FL TIME 2.8 SECS DAP [id number]
[2023-08-30 08:42] VITALS: BP 116/73; PULSE 68; RESP 16
== END 2023-08-30 08:30 | disposition home or self-care (01) ==
LOC: ORPAIN 07:27
PROVIDERS: ATTEND Hospitalist
DX: M54.16 Radiculopathy, lumbar region (principal); E11.9 Type 2 diabetes mellitus without complications; Z88.8 Allergy status to other drugs, medicaments and biological substances
CPT/HCPCS: 62323; J1030; Q9966

== ENCOUNTER → 2023-09-15 | Outpatient (CLI) | payer MEDICARE ==
[2023-09-15 09:57] VITALS: BP 119/71; PULSE 70; RESP 16
--- NOTE | 2023-09-15 13:32 | P.PAINPG ---
PQRS Measure Charge Sheet Comment: HISTORY OF PRESENT ILLNESS: A 62 yr old female presents today w severe and chronic LBP x 1 yr secondary to DDD, spondylosis and facet arthropathy without myelopathy for evaluation s/p MOHIT L4-L5 #1. Pt stats she experienced 75% pain relief x 5 days s/p procedure. Pt states pain level is provoked at 8 /10 in intensity, constant, localized in the lower lumbar spine, predominantly axial, dull in character w occasional shooting pain towards the buttocks. Pain is provoked by bending. Pain is alleviated by PT x 6 wks which ended in Jun 2023, chiropractic treatments in the past, heat, medications, topical, repositioning and rest. Oswestry axial pain score at 24. Interventional procedures include MOHIT L4-L5 x1 Medications include Flexeril, Ketorolac, Ibu, Biofreeze Gel REVIEW OF ORGAN SYSTEMS: CONSTITUTIONAL: No fevers or chills. No recent weight loss. NEUROLOGICAL: + numbness and tingling along the distal extremities. No seizure disorders or headaches. MUSCULOSKELETAL: + pain PSYCHIATRIC: Denies current depression or suicidal thoughts. Physical Examinations : Constitutional : Cooperative , not in acute distress . Neurologic : Cranial nerve II to XII intact. No focal neurological deficits. Psychiatric : alert & oriented x 3. Matching mood & appropriate affect. Judgment & insight intact. Musculoskeletal : Cervical Spine Motor strength in the deltoid and biceps: Normal right side. Normal Left side Motor strength biceps and the wrist extensors: Normal right side . Normal left side Motor strength in the triceps muscle: Normal right side. Normal left side Deep tendon reflexes: Normal at the biceps. Normal at Brachioradialis. Normal at triceps Vertebral body tenderness to deep palpation over Cervical facet loading test: positive bilaterally Spurling test: positive bilaterally Neck distraction test: positive bilaterally Marybel sign: positive bilaterally Lumbar spine Motor strength lower extremities ,thigh and legs 5/5 Right side , 5/5 Left side Deep tendon reflexes : Normal Knee Jerk. Normal Ankle Jerk Vertebral body tenderness Martin Test positive Lumbar facet Loading Test: positive Right / positive Left L4-L5, L5-S1 Range of motion of the lumbar spine Flexion 30 degrees, extension 10 degrees Straight Leg Raise test: Left/ Right positive at <35 degrees Ronda test: positive right / positive left. Severe tenderness over the Sacroiliac joint on the Right / Left sides Gaenslen test: positive bilaterally Seated flexion test: positive bilaterally. Sacral spine : Severe tenderness over the Sacroiliac joint: right side / left side Range of motion: Flexion of the lumbar spine <60 degrees Range of motion: Extension of the lumbar spine <20 degrees Gaenslen's Test positive Ronda test: positive right side / left side Thigh Thrust Test Sacral Thrust Test Imaging: MRI noncontrast of the lumbar spine from 01/01/2023 reviewed Assessment/ Plan : Lumbar DDD Recommendation of BL MBB L3-L5 #1. May need a series of injections, up until RFA, for optimal pain relief. Risks, benefits of procedure discussed and patient verbalized understanding. Admits to anti- coagulant use or medical history of diabetes. Minimal anesthesia including Versed and Fentanyl if clinically indicated. Protocol for discontinuation/ continuation of medications keagan procedure discussed. All questions answered. I have spent greater than 30 minutes on patient care today. Dr Perdomo was available by phone for the evaluation of this patient. The time was used to review the medical records including relevant urine studies and Prescription history (MAPs), review of the available imaging, evaluation and examination of the patient, coordination of care with the medical staff and if applicable [facility] physicians, as well as creation of the medical record PQRS Narrative: Smoking Status Current every day smoker Hx Alcohol Use (MH) No Home Medications: Ambulatory Orders Dapagliflozin Propanediol [Farxiga] 10 mg PO DAILY 09/14/22 FLUoxetine HCL [PROzac] 40 mg PO DAILY 09/14/22 OLANZapine [ZyPREXA] 15 mg PO DAILY 09/14/22 Pantoprazole [Protonix] 40 mg PO DAILY 09/14/22 buPROPion XL [Wellbutrin XL] 300 mg PO PC-LUNCH 09/14/22 metFORMIN HCL 500 mg PO BID 09/14/22 traZODone HCL [Desyrel] 50 - 100 mg PO HS PRN 09/14/22 Fluticasone/Umeclidin/Vilanter [Trelegy Ellipta 200-62.5-25] 1 puff INHALATION DAILY 08/23/23 Rosuvastatin [Crestor] 10 mg PO DAILY 08/23/23 Tirzepatide [Mounjaro] 5 mg SQ NUNEZ 08/23/23 busPIRone HCl [Buspar] 10 mg PO TID 08/23/23 Ibuprofen 600 mg PO Q8H 30 Days #90 tab 09/15/23 Controlled Substance Measures - Controlled Substance Measures Is patient prescribed a controlled substance at discharge?: No
== END ==
LOC: PNWHC3 09:10
PROVIDERS: ATTEND Specialist
DX: M51.37 Other intervertebral disc degeneration, lumbosacral region (principal); F17.200 Nicotine dependence, unspecified, uncomplicated; Z88.1 Allergy status to other antibiotic agents; Z88.8 Allergy status to other drugs, medicaments and biological substances
CPT/HCPCS: 99211

== ENCOUNTER 2023-10-25 06:33 | Day surgery (SDC) | payer MEDICARE ==
[2023-10-25] MEDS: LACTATED RINGERS 1,000 ML IV SCH (07:13)
[2023-10-25 07:18] LABS: Glucose,Whole Blood 124 mg/dL (70-110)
[2023-10-25] MEDS ORDERED: ROPIVACAINE 5MG/ML 20ML VIAL ONE (07:38)
[2023-10-25] MEDS ORDERED: MIDAZOLAM 2 MG/2 ML VIAL ONE (07:38)
--- NOTE | 2023-10-25 07:50 | P.PCN ---
Date of Procedure: 10/25/23 Surgeon: Roselyn Murphy Pathology: none sent Condition: stable Disposition: PACU Description of Procedure: PREOPERATIVE DIAGNOSIS : 1- Lumbar spondylosis with Facet Arthropathy without myelopathy . 2- Lumber degenerative disc disease POSTOPERATIVE DIAGNOSIS: 1- Lumbar spondylosis with Facet Arthropathy without myelopathy . 2- Lumber degenerative disc disease PROCEDURE: Diagnostic bilateral L4 -5 , and L5-S1 medial branch block under fluoroscopy Physician: Roselyn Murphy MD ANESTHESIA: Local with 1% lidocaine;and IV moderate conscious sedation by the anesthesia department EBL: Negligible COMPLICATION: None. PROCEDURE INDICATION: Chronic low back pain secondary to Facet arthropathy unresponsive to conservative treatment. PROCEDURE DESCRIPTION: the patient was seen and identified in the preop holding area , risks and benefits and possible complications of the procedure and alternatives were discussed with the patient, and the patient agreed to proceed with the procedure and signed the consent. IV was started and vital signs monitored during the procedure and fluoroscopy was used to maximize the benefit and accuracy of the needle placement, sedation was given to decrease patient anxiety, patient was taken to the procedure room and placed in prone position vital signs monitored. The patient was brought into the procedure room and placed in prone position. Skin was prepped with Chloraprep and draped in a sterile manner. Lidocaine 1% was used to numb the skin up at the target points that were chosen as follows: at the L5-S1 level which corresponds to the dorsal ramus of L5 the target points were at the superior medial aspect of the sacral ala on each side of the spine on the AP view of fluoroscopy, and for the L3 and L4 medial branches the target points were the connection between the transverse process and the superior articular process of L4 and L5 respectively on the oblique views of fluoroscopy. I used 22-gauge 3-1/2 inch Quincke spinal needles for this procedure and after contacting bone at the target points mentioned above I injected 1 mL of Ropivacaine 0.5% PF in each needle . Patient tolerated procedure well. At the end of the procedure the needles removed and a bandage applied after the skin was cleaned the cleaning solution. patient was then taken to the recovery room in stable condition and monitored in the recovery room for 20-30 minutes and discharged home in stable condition after discharge criteria met . A copy of the needle placement picture was saved to the C-arm machine.
[2023-10-25 07:51] VITALS: RESP 16; TEMP 97.4
[2023-10-25] MEDS: IV FLUID CONTINUATION 1,000 ML IV ONE (07:54)
--- NOTE | 2023-10-25 08:36 | FL ---
EXAMINATION TYPE: FL guided pain mgmt statistic DATE OF EXAM: 10/25/2023 FLUOROSCOPY Fluoroscopy time of 8 seconds was used during bilateral lumbar facet blocks. 5 image/s document/s th e procedure. DAP [id number]
[2023-10-25 08:46] VITALS: BP 114/63; PULSE 74
== END 2023-10-25 08:24 | disposition home or self-care (01) ==
LOC: ORPAIN 06:33
PROVIDERS: ATTEND Anesthesiology
DX: M47.816 Spondylosis without myelopathy or radiculopathy, lumbar region (principal); G89.29 Other chronic pain; M51.36 Other intervertebral disc degeneration, lumbar region; E11.9 Type 2 diabetes mellitus without complications; J44.9 Chronic obstructive pulmonary disease, unspecified; Z79.84 Long term (current) use of oral hypoglycemic drugs; Z79.899 Other long term (current) drug therapy; Z88.8 Allergy status to other drugs, medicaments and biological substances
CPT/HCPCS: 64493; 64494 ×2; 99152; J2250; J2795

== ENCOUNTER → 2023-11-17 | Outpatient (CLI) | payer MEDICARE ==
[2023-11-17 08:09] VITALS: BP 124/60; PULSE 92; RESP 16; TEMP 97.1
--- NOTE | 2023-11-17 14:16 | P.PAINPG ---
PQRS Measure Charge Sheet Comment: HISTORY OF PRESENT ILLNESS: A 62 yr old female presents today w severe and chronic LBP x 1 yr secondary to DDD, spondylosis and facet arthropathy without myelopathy for evaluation s/p BL MBB L3-L5 #1. Pt stats she experienced 100% pain relief x 2 wks s/p procedure. Pt states pain level is provoked at 8 /10 in intensity, constant, localized in the lower lumbar spine, predominantly axial, dull in character w occasional shooting pain towards the buttocks. Pain is provoked by bending. Pain is alleviated by PT x 6 wks which ended in Jun 2023, chiropractic treatments in the past, heat, medications, topical, repositioning and rest. Oswestry axial pain score at 23. Interventional procedures include MOHIT L4-L5 x1, BL MBB L3-L5 x1 Medications include Flexeril, Ketorolac, Biofreeze Gel REVIEW OF ORGAN SYSTEMS: CONSTITUTIONAL: No fevers or chills. No recent weight loss. NEUROLOGICAL: + numbness and tingling along the distal extremities. No seizure disorders or headaches. MUSCULOSKELETAL: + pain PSYCHIATRIC: Denies current depression or suicidal thoughts. Physical Examinations : Constitutional : Cooperative , not in acute distress . Neurologic : Cranial nerve II to XII intact. No focal neurological deficits. Psychiatric : alert & oriented x 3. Matching mood & appropriate affect. Judgment & insight intact. Musculoskeletal : Cervical Spine Motor strength in the deltoid and biceps: Normal right side. Normal Left side Motor strength biceps and the wrist extensors: Normal right side . Normal left side Motor strength in the triceps muscle: Normal right side. Normal left side Deep tendon reflexes: Normal at the biceps. Normal at Brachioradialis. Normal at triceps Vertebral body tenderness to deep palpation over Cervical facet loading test: positive bilaterally Spurling test: positive bilaterally Neck distraction test: positive bilaterally Marybel sign: positive bilaterally Lumbar spine Motor strength lower extremities ,thigh and legs 5/5 Right side , 5/5 Left side Deep tendon reflexes : Normal Knee Jerk. Normal Ankle Jerk Vertebral body tenderness Martin Test positive Lumbar facet Loading Test: positive Right / positive Left L4-L5, L5-S1 Range of motion of the lumbar spine Flexion 30 degrees, extension 10 degrees Straight Leg Raise test: Left/ Right positive at <35 degrees Ronda test: positive right / positive left. Severe tenderness over the Sacroiliac joint on the Right / Left sides Jose Angellen test: positive bilaterally Seated flexion test: positive bilaterally. Sacral spine : Severe tenderness over the Sacroiliac joint: right side / left side Range of motion: Flexion of the lumbar spine <60 degrees Range of motion: Extension of the lumbar spine <20 degrees Gaenslen's Test positive Ronda test: positive right side / left side Thigh Thrust Test Sacral Thrust Test Imaging: MRI noncontrast of the lumbar spine from 01/01/2023 reviewed Assessment/ Plan : Lumbar DDD Recommendation of BL MBB L3-L5 #2. May need a series of injections, up until RFA, for optimal pain relief. Risks, benefits of procedure discussed and patient verbalized understanding. Admits to anti- coagulant use or medical history of diabetes. Minimal anesthesia including Versed and Fentanyl if clinically indicated. Protocol for discontinuation/ continuation of medications keagan procedure discussed. All questions answered. I have spent greater than 30 minutes on patient care today. Dr Perdomo was available by phone for the evaluation of this patient. The time was used to review the medical records including relevant urine studies and Prescription history (MAPs), review of the available imaging, evaluation and examination of the patient, coordination of care with the medical staff and if applicable referring physicians, as well as creation of the medical record PQRS Narrative: Smoking Status Current every day smoker Hx Alcohol Use (MH) No Home Medications: Ambulatory Orders Dapagliflozin Propanediol [Farxiga] 10 mg PO DAILY 09/14/22 FLUoxetine HCL [PROzac] 40 mg PO DAILY 09/14/22 OLANZapine [ZyPREXA] 15 mg PO DAILY 09/14/22 Pantoprazole [Protonix] 40 mg PO DAILY 09/14/22 buPROPion XL [Wellbutrin XL] 300 mg PO PC-LUNCH 09/14/22 metFORMIN HCL 500 mg PO BID 09/14/22 traZODone HCL [Desyrel] 50 - 100 mg PO HS PRN 09/14/22 Fluticasone/Umeclidin/Vilanter [Trelegy Ellipta 200-62.5-25] 1 puff INHALATION DAILY 08/23/23 Rosuvastatin [Crestor] 10 mg PO DAILY 08/23/23 Tirzepatide [Mounjaro] 5 mg SQ NUNEZ 08/23/23 busPIRone HCl [Buspar] 10 mg PO TID 08/23/23 Ibuprofen 600 mg PO Q8H 30 Days #90 tab 09/15/23 ARIPiprazole [Abilify] 5 mg PO BID 10/25/23 DULoxetine HCL [Cymbalta] 60 mg PO DAILY 10/25/23 Controlled Substance Measures - Controlled Substance Measures Is patient prescribed a controlled substance at discharge?: No
== END ==
LOC: PNWHC3 07:45
PROVIDERS: ATTEND Specialist
DX: M51.37 Other intervertebral disc degeneration, lumbosacral region (principal); F17.200 Nicotine dependence, unspecified, uncomplicated; Z88.1 Allergy status to other antibiotic agents; Z88.8 Allergy status to other drugs, medicaments and biological substances
CPT/HCPCS: 99211

== ENCOUNTER 2023-12-13 07:09 | Day surgery (SDC) | payer MEDICARE ==
[~2023-12-13 07:09] MED LIST: LACTATED RINGERS 1,000 ML IV SCH
[2023-12-13] MEDS: IV FLUID CONTINUATION 1,000 ML IV ONE ×2 (08:00→09:00)
[2023-12-13 08:03] VITALS: TEMP 98
[2023-12-13 08:04] LABS: Glucose,Whole Blood 118 mg/dL (70-110)
[2023-12-13] MEDS ORDERED: MIDAZOLAM 2 MG/2 ML VIAL ONE (08:45)
[2023-12-13] MEDS ORDERED: ROPIVACAINE 5MG/ML 20ML VIAL ONE (08:45)
--- NOTE | 2023-12-13 08:57 | P.PCN ---
Description of Procedure: PROCEDURE DESCRIPTION: the patient was seen and identified in the preop holding area , risks and benefits and possible complications of the procedure and alternatives were discussed with the patient, and the patient agreed to proceed with the procedure and signed the consent. IV was started and vital signs monitored during the procedure and fluoroscopy was used to maximize the benefit and accuracy of the needle placement, sedation was given to decrease patient anxiety, patient was taken to the procedure room and placed in prone position vital signs monitored. The patient was brought into the procedure room and placed in prone position. Skin was prepped with Chloraprep and draped in a sterile manner. Lidocaine 1% was used to numb the skin up at the target points that were chosen as follows: at the L5-S1 level which corresponds to the dorsal ramus of L5 the target points were at the superior medial aspect of the sacral ala on each side of the spine on the AP view of fluoroscopy, and for the L3 and L4 medial branches the target points were the connection between the transverse process and the superior articular process of L4 and L5 respectively on the oblique views of fluoroscopy. I used 22-gauge 3-1/2 inch Quincke spinal needles for this procedure and after contacting bone at the target points mentioned above I injected 1 mL of Ropivacaine 0.5% PF in each needle . Patient tolerated procedure well. At the end of the procedure the needles removed and a bandage applied after the skin was cleaned the cleaning solution. patient was then taken to the recovery room in stable condition and monitored in the recovery room for 20-30 minutes and discharged home in stable condition after discharge criteria met . A copy of the needle placement picture was saved to the C-arm machine.
[2023-12-13 09:17] VITALS: BP 104/62; PULSE 75; RESP 16
--- NOTE | 2023-12-13 09:33 | FL ---
Fluoroscopy INDICATION: Pain FINDINGS: Fluoroscopy time: 11.4 seconds. Total dose area product (DAP) in uGy*m?, mGy*cm? (or similar): 0.03865 Images obtained: 5. IMPRESSION: 1. Documentation of fluoroscopy.
== END 2023-12-13 09:36 | disposition home or self-care (01) ==
LOC: ORPAIN 07:09
PROVIDERS: ATTEND Anesthesiology
DX: M47.816 Spondylosis without myelopathy or radiculopathy, lumbar region (principal); E11.9 Type 2 diabetes mellitus without complications; J44.9 Chronic obstructive pulmonary disease, unspecified; E78.5 Hyperlipidemia, unspecified; Z79.84 Long term (current) use of oral hypoglycemic drugs; Z88.1 Allergy status to other antibiotic agents; Z88.8 Allergy status to other drugs, medicaments and biological substances
CPT/HCPCS: 64493; 64494 ×2; 99152; J2250; J2795

== ENCOUNTER → 2023-12-29 | Outpatient (CLI) | payer MEDICARE, OTHER ==
[2023-12-29 10:47] VITALS: BP 110/61; PULSE 65; RESP 16
--- NOTE | 2024-01-23 10:31 | P.PAINPG ---
PQRS Measure Charge Sheet Comment: HISTORY OF PRESENT ILLNESS: A 62 yr old female w daughter at side presents today w severe and chronic LBP x 1 yr secondary to DDD, spondylosis and facet arthropathy without myelopathy for evaluation s/p BL MBB L4-L5/ L5-S1 #2. Pt states she experienced 80 % pain relief x 1 wks s/p procedure. Pt states pain level is provoked at 7 /10 in intensity, constant, localized in the lower lumbar spine, predominantly axial, dull in character w occasional shooting pain towards the buttocks. Pain is provoked by bending. Pain is alleviated by PT x 6 wks which ended in Jun 2023, chiropractic treatments in the past, heat, medications, topical, repositioning and rest. Oswestry axial pain score at 23. Interventional procedures include MOHIT L4-L5 x1, BL MBB L3-L5 x2 Medications include Flexeril, Ketorolac, Biofreeze Gel REVIEW OF ORGAN SYSTEMS: CONSTITUTIONAL: No fevers or chills. No recent weight loss. NEUROLOGICAL: + numbness and tingling along the distal extremities. No seizure disorders or headaches. MUSCULOSKELETAL: + pain PSYCHIATRIC: Denies current depression or suicidal thoughts. Physical Examinations : Constitutional : Cooperative , not in acute distress . Neurologic : Cranial nerve II to XII intact. No focal neurological deficits. Psychiatric : alert & oriented x 3. Matching mood & appropriate affect. Judgment & insight intact. Musculoskeletal : Cervical Spine Motor strength in the deltoid and biceps: Normal right side. Normal Left side Motor strength biceps and the wrist extensors: Normal right side . Normal left side Motor strength in the triceps muscle: Normal right side. Normal left side Deep tendon reflexes: Normal at the biceps. Normal at Brachioradialis. Normal at triceps Vertebral body tenderness to deep palpation over Cervical facet loading test: positive bilaterally Spurling test: positive bilaterally Neck distraction test: positive bilaterally Marybel sign: positive bilaterally Lumbar spine Motor strength lower extremities ,thigh and legs 5/5 Right side , 5/5 Left side Deep tendon reflexes : Normal Knee Jerk. Normal Ankle Jerk Vertebral body tenderness Martin Test positive Lumbar facet Loading Test: positive Right / positive Left L4-L5, L5-S1 Range of motion of the lumbar spine Flexion 30 degrees, extension 10 degrees Straight Leg Raise test: Left/ Right positive at <35 degrees Ronda test: positive right / positive left. Severe tenderness over the Sacroiliac joint on the Right / Left sides Gaenslen test: positive bilaterally Seated flexion test: positive bilaterally. Sacral spine : Severe tenderness over the Sacroiliac joint: right side / left side Range of motion: Flexion of the lumbar spine <60 degrees Range of motion: Extension of the lumbar spine <20 degrees Gaenslen's Test positive Ronda test: positive right side / lef t side Thigh Thrust Test Sacral Thrust Test Imaging: MRI noncontrast of the lumbar spine from 01/01/2023 reviewed Assessment/ Plan : Lumbar DDD Recommendation of BL RFA L4-L5/ L5-S1 Exhibited optimal pain relief w prior BL MBB lumbar procedures. Risks, benefits of procedure discussed and patient verbalized understanding. Admits to anti- coagulant use or medical history of diabetes. Minimal anesthesia including Versed and Fentanyl if clinically indicated. Protocol for discontinuation/ continuation of medications keagan procedure discussed. All questions answered. I have spent greater than 30 minutes on patient care today. Dr Perdomo was available by phone for the evaluation of this patient. The time was used to review the medical records including relevant urine studies and Prescription history (MAPs), review of the available imaging, evaluation and examination of the patient, coordination of care with the medical staff and if applicable referring physicians, as well as creation of the medical record PQRS Narrative: Smoking Status Current every day smoker Hx Alcohol Use (MH) No Home Medications: Ambulatory Orders Dapagliflozin Propanediol [Farxiga] 10 mg PO DAILY 09/14/22 Pantoprazole [Protonix] 40 mg PO DAILY 09/14/22 metFORMIN HCL 500 mg PO BID 09/14/22 traZODone HCL [Desyrel] 200 mg PO HS PRN 09/14/22 Fluticasone/Umeclidin/Vilanter [Trelegy Ellipta 200-62.5-25] 1 puff INHALATION DAILY 08/23/23 Rosuvastatin [Crestor] 10 mg PO DAILY 08/23/23 Tirzepatide [Mounjaro] 5 mg SQ FR 08/23/23 ARIPiprazole [Abilify] 5 mg PO BID 10/25/23 DULoxetine HCL [Cymbalta] 60 mg PO DAILY 10/25/23 Albuterol Inhaler [Ventolin Hfa Inhaler] 1 - 2 puff INHALATION Q6H PRN 12/12/23 Cyanocobalamin [Vitamin B-12 Injection] 1,000 mcg SQ QMONTHLY 12/12/23 hydrOXYzine pamoate [Vistaril] 25 mg PO TID PRN 12/12/23 Controlled Substance Measures - Controlled Substance Measures Is patient prescribed a controlled substance at discharge?: No
== END ==
LOC: PNWHC3 10:31
PROVIDERS: ATTEND Specialist
DX: M51.37 Other intervertebral disc degeneration, lumbosacral region (principal); M47.817 Spondylosis without myelopathy or radiculopathy, lumbosacral region; F17.200 Nicotine dependence, unspecified, uncomplicated; Z88.1 Allergy status to other antibiotic agents; Z88.8 Allergy status to other drugs, medicaments and biological substances
CPT/HCPCS: 99211

== ENCOUNTER 2024-02-09 06:56 | Day surgery (SDC) | payer MEDICARE, OTHER ==
[2024-02-08 09:26] VITALS: BMI 24.7
[2024-02-09 07:15] VITALS: TEMP 97.7
[2024-02-09] MEDS: LACTATED RINGERS 1,000 ML IV SCH (07:25)
[2024-02-09] MEDS: IV FLUID CONTINUATION 1,000 ML IV ONE (07:26)
[2024-02-09 07:28] LABS: Glucose,Whole Blood 126 mg/dL (70-110)
[2024-02-09] MEDS ORDERED: ROPIVACAINE 5MG/ML 20ML VIAL ONE (08:03)
[2024-02-09] MEDS ORDERED: methylPREDNISolone ACETATE 40 MG/ML 1 ML VIAL ONE (08:03)
[2024-02-09] MEDS ORDERED: fentaNYL (PF) 50 MCG/ML 2 ML AMP ONE (08:03)
[2024-02-09] MEDS ORDERED: MIDAZOLAM 2 MG/2 ML VIAL ONE (08:03)
--- NOTE | 2024-02-09 08:28 | P.PCN ---
Date of Procedure: 02/09/24 Procedure(s) Performed: PREOPERATIVE DIAGNOSIS: 1-Lumbar Spondylosis with Facet Arthropathy without myelopathy. 2- Lumber degenerative disc disease. POSTOPERATIVE DIAGNOSIS: 1- Lumbar Spondylosis with Facet Arthropathy without myelopathy. 2- Lumber degenerative disc disease. PROCEDURES : Bilateral Radiofrequency thermocoagulation, L3 , L4 , and L5 medial branch, with fluoroscopic guidance (fluoroscopy images available in the radiology department) ( to denervate the facet joint at bilateral L4-5 ,and L5-S1 levels ). ANESTHESIA: Monitored anesthesia care as per anesthesia department , Moderate sedation with intravenous versed 2 mg and fentaneyl 100 mcg, and local infiltration with Ropivacaine 0.5 % . ( sedation start time 08:03 , end at 08:24 ) EBL: Minimal PROCEDURE INDICATION: The patient with low back pain secondary to lumbar facet arthropathy who had more than 50% relief of her pain with previous diagnostic lumbar medial branch block with bupivacaine. PROCEDURE DESCRIPTION / TECHNIQUE: The patient was seen and identified in the preoperative area. Risks, benefits, complications, including but not limited to risk of infection ,bleeding , allergic reactions to the medications and no complete pain releife , and alternatives were discussed with the patient, the patient agreed to proceed with the procedure and signed the consent. IV was started. Vital signs remained stable throughout the procedure. Patient was taken to the OR and time out was completed. The patient was placed in the prone position on the procedure table. The lumber area was prepped and draped in the usual sterile fashion. . Vital signs were closely monitored during the procedure .IV sedation was used during the procedure to decrease patients anxiety. Using AP and then oblique fluoroscopy, the ``eye of the Valente dog corresponding to the connection between the superior and transverse articular processes of right L3, L4, and L5 were identified, marked, and localized with 1% lidocaine. Subsequently, a [id number] radiofrequency cannula (Venom ) with a 10-mm active tip was advanced guided by fluoroscopy to each of the``eyes of the Valente dog at right L3, L4, and L5. Each site then underwent sensory testing at 50 Hz and 0 to 1 volt and motor testing at 2.5 Hz and 0 to 3 volt with local stimulation, but no radicular symptoms down the legs. Thereafter each sites underwent radiofrequency thermocoagulation at 80 degrees celsius for 90 seconds after injecting 0.5 ml of PF Ropivacaine 1ml, then after the thermocoagulation done , 1 ml of the block solution containing Depo-Medrol 20 mg and 3 ml of Ropivacaine 0.5% was injected at the right L3 , L4 , and L5 , levels after negative aspiration of CSF and blood and with no paresthesias. Cannulas were retracted while injecting lidocaine 1% until the needle is out. The same procedure was repeated at the level of Left L3, L4, and L5 levels. At the end of the procedure, the skin was cleansed and bandages were applied. COMPLICATIONS: No acute complications. DISPOSITION / PLANS: The patient was placed in a supine position and transferred to the recovery area in a stable condition for observation and was discharged from the recovery room after meeting discharge criteria. Home dis charge instructions given to the patient by the staff. The patient was reexamined prior to discharge. The patient will schedule a follow up in the clinic in 2-4 weeks.
[2024-02-09] MEDS: IV FLUID CONTINUATION 500 ML IV ONE (08:36)
--- NOTE | 2024-02-09 08:51 | FL ---
Fluoroscopy History: PAIN BILATERAL LUMBAR FACET BLOCK IN PAIN MANAGEMENT WITH DR. HANSON FL TIME 12.7 SEC DAP .0.2997
[2024-02-09 09:09] VITALS: BP 103/65; PULSE 64; RESP 20
== END 2024-02-09 09:12 | disposition home or self-care (01) ==
LOC: ORPAIN 06:56
PROVIDERS: ATTEND Specialist
DX: M47.816 Spondylosis without myelopathy or radiculopathy, lumbar region (principal); M51.36 Other intervertebral disc degeneration, lumbar region; Z88.8 Allergy status to other drugs, medicaments and biological substances; Z79.84 Long term (current) use of oral hypoglycemic drugs
CPT/HCPCS: 64635; 64636 ×2; 99152; J2250; J3010; J2795; J1010

== ENCOUNTER → 2024-02-23 | Outpatient (CLI) | payer MEDICARE, OTHER ==
[2024-02-23 10:10] VITALS: BP 123/77; PULSE 78; RESP 18
--- NOTE | 2024-02-23 14:44 | P.PAINPG ---
Objective - Vital Signs Vital signs: Intake & Output 02/22/24 02/23/24 02/23/24 18:59 06:59 18:59 Weight 135 kg PQRS Measure Charge Sheet Comment: HISTORY OF PRESENT ILLNESS: A 62 yr old female w daughter at side presents today w severe and chronic LBP > 1 yr secondary to DDD, spondylosis and facet arthropathy without myelopathy for evaluation s/p BL RFA L4-L5/ L5-S1. Pt states she experienced 0 % pain relief s/p procedure. Pt states pain level is provoked at 8 /10 in intensity, constant, localized in the lower lumbar spine, predominantly axial, dull in character w occasional shooting pain towards the buttocks. Pain is provoked by bending. Pain is alleviated by PT x 6 wks which ended in Jun 2023, chiropractic treatments in the past, heat, medications, topical, repositioning and rest. Interventional procedures include MOHIT L4-L5 x1, BL RFA L3-L5 (Jan 2024) Medications include Flexeril, Ketorolac, Biofreeze Gel REVIEW OF ORGAN SYSTEMS: CONSTITUTIONAL: No fevers or chills. No recent weight loss. NEUROLOGICAL: + numbness and tingling along the distal extremities. No seizure disorders or headaches. MUSCULOSKELETAL: + pain PSYCHIATRIC: Denies current depression or suicidal thoughts. Physical Examinations : Constitutional : Cooperative , not in acute distress . Neurologic : Cranial nerve II to XII intact. No focal neurological deficits. Psychiatric : alert & oriented x 3. Matching mood & appropriate affect. Judgment & insight intact. Musculoskeletal : Cervical Spine Motor strength in the deltoid and biceps: Normal right side. Normal Left side Motor strength biceps and the wrist extensors: Normal right side . Normal left side Motor strength in the triceps muscle: Normal right side. Normal left side Deep tendon reflexes: Normal at the biceps. Normal at Brachioradialis. Normal at triceps Vertebral body tenderness to deep palpation over Cervical facet loading test: positive bilaterally Spurling test: positive bilaterally Neck distraction test: positive bilaterally Marybel sign: positive bilaterally Lumbar spine Motor strength lower extremities ,thigh and legs 5/5 Right side , 5/5 Left side Deep tendon reflexes : Normal Knee Jerk. Normal Ankle Jerk Vertebral body tenderness Martin Test positive Lumbar facet Loading Test: positive Right / positive Left L4-L5, L5-S1 Range of motion of the lumbar spine Flexion 30 degrees, extension 10 degrees Straight Leg Raise test: Left/ Right positive at <35 degrees Ronda test: positive right / positive left. Severe tenderness over the Sacroiliac joint on the Right / Left sides Gaenslen test: positive bilaterally Seated flexion test: positive bilaterally. Sacral spine : Severe tenderness over the Sacroiliac joint: right side / left side Range of motion: Flexion of the lumbar spine <60 degrees Range of motion: Extension of the lumbar spine <20 degrees Gaenslen's Test positive BL Ronda test: positive right side / left side Thigh Thrust Test Sacral Thrust Test Imaging: MRI noncontrast of the lumbar spine from 01/01/2023 reviewed Assessment/ Plan : Lumbar radiculopathy Recommendation of medication management. Vado 7.5/325mg #18 NR. Discussed discontinuation of any cannabis products and ETOH while on Vado. Use, side effects, adverse reactions, safe storage discussed. All questions answered. I have spent greater than 30 minutes on patient care today. Dr Perdomo was available by phone for the evaluation of this patient. The time was used to review the medical records including relevant urine studies and Prescription history (MAPs), review of the available imaging, evaluation and examination of the patient, coordination of care with the medical staff and if applicable referring physicians, as well as creation of the medical record - Pain Location Lower Back Non-Pharmacological Interventions: Position/Reposition Pharmacological Interventions: Block PQRS Narrative: Smoking Status Current every day smoker Hx Alcohol Use (MH) No Home Medications: Ambulatory Orders Dapagliflozin Propanediol [Farxiga] 10 mg PO DAILY 09/14/22 Pantoprazole [Protonix] 40 mg PO DAILY 09/14/22 metFORMIN HCL 500 mg PO BID 09/14/22 traZODone HCL [Desyrel] 200 mg PO HS PRN 09/14/22 Fluticasone/Umeclidin/Vilanter [Trelegy Ellipta 200-62.5-25] 1 puff INHALATION DAILY 08/23/23 Rosuvastatin [Crestor] 10 mg PO DAILY 08/23/23 Tirzepatide [Mounjaro] 5 mg SQ FR 08/23/23 ARIPiprazole [Abilify] 5 mg PO BID 10/25/23 DULoxetine HCL [Cymbalta] 60 mg PO DAILY 10/25/23 Albuterol Inhaler [Ventolin Hfa Inhaler] 1 - 2 puff INHALATION Q6H PRN 12/12/23 Cyanocobalamin [Vitamin B-12 Injection] 1,000 mcg SQ QMONTHLY 12/12/23 hydrOXYzine pamoate [Vistaril] 25 mg PO TID PRN 12/12/23 Controlled Substance Measures - Controlled Substance Measures Is patient prescribed a controlled substance at discharge?: Yes When asked, does pt state using other controlled substances?: Yes If prescribed controlled substance>3 days was MAPS reviewed?: Prescribed <3 Days
== END ==
LOC: PNWHC3 09:55
PROVIDERS: ATTEND Specialist
DX: M47.816 Spondylosis without myelopathy or radiculopathy, lumbar region
CPT/HCPCS: 99211

== ENCOUNTER → 2024-03-06 | Outpatient (CLI) | payer MEDICARE, OTHER ==
--- NOTE | 2024-03-06 11:33 | CTL ---
EXAMINATION TYPE: CT Low Dose Lung DATE OF EXAM ORDERED: 03/06/2024 HISTORY: History of tobacco use, 32 pack history, current smoker. Lung cancer screening CT DLP: 99.[address] CTDI: 2.5 mGy Automated exposure control for dose reduction was used. SCREENING VISIT: First screening visit COMPARISON: No direct comparisons TECHNIQUE: Low dose computed tomography scan was performed through the chest at 1 mm thick sections a nd reconstructed images in multiple planes at 1 mm and [address] DIAGNOSTIC QUALITY: Satisfactory FINDINGS: Nodules: Left upper lobe 3.1 mm pulmonary nodule (series 6, image 20). Superior segment right lower lobe 2.2 mm pulmonary nodule (series 6, image 29). LUNGS: COPD: Severity: Minimal Fibrosis: Severity: None Lymph nodes: None Other findings: None RIGHT PLEURAL SPACE: Effusion: None Calcification: None Thickening: None Pneumothorax: None LEFT PLEURAL SPACE: Effusion: None Calcification: None Thickening: None Pneumothorax: None HEART: Heart Size: Normal Coronary Calcification: Small Pericardial Effusion: None OTHER FINDINGS: Upper abdomen: Nonobstructive right renal 3 mm calculus. Bony thorax: DISH of the thoracic spine. Supraclavicular region: None Other: None IMPRESSION: Couple of pulmonary nodules with largest measuring up to 3.[address] LUNG RAD AND CT CHEST RECOMMENDATION: Lung-Rad 2 Benign Appearance or Behavior: Continue annual sc reening with LDCT in 12 months. S Modifier (other clinically significant findings): None [facility], Workstation: [employer], 03/06/2024 11:30 AM
== END | disposition home or self-care (01) ==
LOC: RADCTMAIN 10:06
PROVIDERS: ATTEND Internal Medicine Sleep Medicine
DX: Z12.2 Encounter for screening for malignant neoplasm of respiratory organs
CPT/HCPCS: 71271

== ENCOUNTER → 2024-03-06 | Outpatient (CLI) | payer MEDICARE, OTHER ==
--- NOTE | 2024-03-07 18:33 | MM ---
Reason for Exam: Screening (asymptomatic). Last mammogram was performed 1 year(s) and 3 month(s) ago. Patient History: Menarche at age 9. First Full-Term at age 27. Postmenopausal. Risk Values: Oliav 5 year model risk: 2.0%. NCI Lifetime model risk: 7.6%. Prior Study Comparison: 02/12/2021 Bilateral Screening Mammogram, [facility]. 12/08/2022 Bilateral Diagnostic Mammogram, [facility]. Tissue Density: There are scattered areas of fibroglandular density. Findings: Analyzed By CAD. There is no suspicious group of microcalcifications or new suspicious mass in either breast. Overall Assessment: Negative, BI-RAD 1 Management: Screening Mammogram of both breasts in 1 year. . Patient should continue monthly self-breast exams. A clinical breast exam by your physician is recommended on an annual basis. This exam should not preclude additional follow-up of suspicious palpable abnormalities. Note on Oliva scores and lifetime risk: 1. A Oliva score greater than 3% is considered moderate risk. If this is the case, consider specialist referral to assess eligibility for a risk reducing agent. 2. If overall lifetime risk for the development of breast cancer is 20% or higher, the patient may qualify for future screening with alternating mammogram and breast MRI. [facility], , 03/07/2024 6:30 PM. Electronically signed and approved by: Joe Mcmanus M.D. Radiologist
== END | disposition home or self-care (01) ==
LOC: RADMAMWWP 10:22
PROVIDERS: ATTEND Internal Medicine
CPT/HCPCS: 77063; 77067

== ENCOUNTER → 2024-04-12 | Outpatient (CLI) | payer MEDICARE, OTHER ==
--- NOTE | 2024-04-12 15:52 | MR ---
EXAMINATION TYPE: MR lumbar spine wo con DATE OF EXAM: 04/12/2024 11:38 AM COMPARISON: None. CLINICAL INDICATION: Female, 63 years old with history of M47.816,M54.16,M48.061; PHH, Lower back kirk n, BLE radiculopathy. TECHNIQUE: Multi planar, multi sequence imaging was performed utilizing: T1-weighted, T2-weighted, a nd turbo inversion recovery imaging of the lumbar spine. IV Contrast: mL (None, if empty) FINDINGS: Alignment: The lumbar vertebral bodies have preserved heights and alignment. Cord: The conus medullaris and the distal spinal cord appear unremarkable with regards to their signa l intensity and morphology. Bones/Discs: Mild degeneration changes throughout the spine with osteophyte formation and facet joint arthropathy. Intervertebral disc signal is maintained. No abnormal inversion recovery signal to sugg est bony edema. T12-L1: No evidence of significant spinal canal stenosis or neural foraminal stenosis. L1-L2: No evidence of significant spinal canal stenosis or neural foraminal stenosis. L2-L3: No evidence of significant spinal canal stenosis or neural foraminal stenosis. L3-L4: No evidence of significant spinal canal stenosis. Facet joint arthropathy mild bilateral neura l foraminal stenosis. L4-L5: No evidence of significant spinal canal stenosis. Facet joint arthropathy mild bilateral neura l foraminal stenosis. L5-S1: No evidence of significant spinal canal stenosis. Facet joint arthropathy mild bilateral neura l foraminal stenosis. No significant spinal canal or neural foraminal stenosis in the remainder of the visualized levels. Other findings: None. IMPRESSION: 1. No definitive evidence of disc herniation or significant spinal canal stenosis. 2. Mild disc degeneration with associated osteoarthritic changes. [facility], , 04/12/2024 3:49 PM
== END | disposition home or self-care (01) ==
LOC: RADMRIMAIN 10:59
PROVIDERS: ATTEND Orthopaedic Surgery
DX: M48.061 Spinal stenosis, lumbar region without neurogenic claudication (principal); M47.26 Other spondylosis with radiculopathy, lumbar region; M51.16 Intervertebral disc disorders with radiculopathy, lumbar region
CPT/HCPCS: 72148

== ENCOUNTER → 2024-04-23 | Outpatient (CLI) | payer MEDICARE, OTHER ==
[2024-04-23 14:34] VITALS: BP 133/84; PULSE 98; RESP 16
--- NOTE | 2024-04-23 16:51 | P.PAINPG ---
Objective - Vital Signs Vital signs: Intake & Output 04/22/24 04/23/24 04/23/24 18:59 06:59 18:59 Weight 63.049 kg PQRS Measure Charge Sheet Comment: HISTORY OF PRESENT ILLNESS: A 63 yr old female w daughter at side presents today w severe and chronic LBP > 1 yr secondary to radiculopathy, spondylosis and facet arthropathy without myelopathy for imaging results. Pt states pain level is provoked at 8 /10 in intensity, constant, localized in the lower lumbar spine, predominantly axial, achy in character w occasional shooting pain towards the buttocks. Pain is provoked by bending. Pain is alleviated by PT x 6 wks which ended in Jun 2023, chiropractic treatments in the past, heat, medications, topical, repositioning and rest. Pt states she has stopped smoking cannabis. She also hasn't followed up w Dr Hua and states she will in the next 2 wks. Interventional procedures include MOHIT L4-L5 x1, BL RFA L3-L5 (Jan 2024) Medications include Flexeril, Naproxen, Biofreeze Gel REVIEW OF ORGAN SYSTEMS: CONSTITUTIONAL: No fevers or chills. No recent weight loss. NEUROLOGICAL: + numbness and tingling along the distal extremities. No seizure disorders or headaches. MUSCULOSKELETAL: + pain PSYCHIATRIC: Denies current depression or suicidal thoughts. Physical Examinations : Constitutional : Cooperative , not in acute distress . Neurologic : Cranial nerve II to XII intact. No focal neurological deficits. Psychiatric : alert & oriented x 3. Matching mood & appropriate affect. Judgment & insight intact. Musculoskeletal : Cervical Spine Motor strength in the deltoid and biceps: Normal right side. Normal Left side Motor strength biceps and the wrist extensors: Normal right side . Normal left side Motor strength in the triceps muscle: Normal right side. Normal left side Deep tendon reflexes: Normal at the biceps. Normal at Brachioradialis. Normal at triceps Vertebral body tenderness to deep palpation over Cervical facet loading test: positive bilaterally Spurling test: positive bilaterally Neck distraction test: positive bilaterally Marybel sign: positive bilaterally Lumbar spine Motor strength lower extremities ,thigh and legs 5/5 Right side , 5/5 Left side Deep tendon reflexes : Normal Knee Jerk. Normal Ankle Jerk Vertebral body tenderness Martin Test positive Lumbar facet Loading Test: positive Right / positive Left L4-L5, L5-S1 Range of motion of the lumbar spine Flexion 30 degrees, extension 10 degrees Straight Leg Raise test: Left/ Right positive at <35 degrees Ronda test: positive right / positive left. Severe tenderness over the Sacroiliac joint on the Right / Left sides Gaenslen test: positive bilaterally Seated flexion test: positive bilaterally. Sacral spine : Severe tenderness over the Sacroiliac joint: right side / left side Range of motion: Flexion of the lumbar spine <60 degrees Range of motion: Extension of the lumbar spine <20 degrees Gaenslen's Test positive BL Ronda test: positive right side / left side Thigh Thrust Test Sacral Thrust Test Imaging: MRI noncontrast of the lumbar spine from 04/12/24 reviewed Assessment/ Plan : L3-S1 facet arthropathy Recommendation of medication management. Opiate/ narcotic agreement signed 04/23/24. Zaleski 7.5/325mg #60 w 1 RF upon acceptable UDS. UDS collected 04/23/24. Admits discontinuation of any cannabis products and ETOH. Use, side effects, adverse reactions, safe storage discussed. All questions answered. I have spent greater than 30 minutes on patient care today. Dr Perdomo was available by phone for the evaluation of this patient. The time was used to review the medical records including relevant urine studies and Prescription history (MAPs), review of the available imaging, evaluation and examination of the patient, coordination of care with the medical staff and if applicable referring physicians, as well as creation of the medical record PQRS Narrative: Smoking Status Current every day smoker Hx Alcohol Use (MH) No Home Medications: Ambulatory Orders Dapagliflozin Propanediol [Farxiga] 10 mg PO DAILY 09/14/22 Pantoprazole [Protonix] 40 mg PO DAILY 09/14/22 metFORMIN HCL 500 mg PO BID 09/14/22 traZODone HCL [Desyrel] 200 mg PO HS PRN 09/14/22 Fluticasone/Umeclidin/Vilanter [Trelegy Ellipta 200-62.5-25] 1 puff INHALATION DAILY 08/23/23 Rosuvastatin [Crestor] 10 mg PO DAILY 08/23/23 Tirzepatide [Mounjaro] 5 mg SQ FR 08/23/23 ARIPiprazole [Abilify] 5 mg PO BID 10/25/23 DULoxetine HCL [Cymbalta] 60 mg PO DAILY 10/25/23 Albuterol Inhaler [Ventolin Hfa Inhaler] 1 - 2 puff INHALATION Q6H PRN 12/12/23 Cyanocobalamin [Vitamin B-12 Injection] 1,000 mcg SQ QMONTHLY 12/12/23 hydrOXYzine pamoate [Vistaril] 25 mg PO TID PRN 12/12/23 HYDROcodone/APAP 7.5-325MG [Zaleski 7.5-325] 1 tab PO Q4H PRN 3 Days #18 tab 02/23/24 Ibuprofen 800 mg PO Q8H PRN 30 Days #90 tab 04/11/24 Controlled Substance Measures - Controlled Substance Measures Is patient prescribed a controlled substance at discharge?: No
== END ==
LOC: PNWHC3 13:49
PROVIDERS: ATTEND Specialist
DX: M47.817 Spondylosis without myelopathy or radiculopathy, lumbosacral region (principal); F17.200 Nicotine dependence, unspecified, uncomplicated; Z88.1 Allergy status to other antibiotic agents; Z88.8 Allergy status to other drugs, medicaments and biological substances
CPT/HCPCS: 80307; 99211

== ENCOUNTER → 2024-05-31 | Outpatient (CLI) | payer MEDICARE, OTHER ==
--- NOTE | 2024-06-01 18:18 | BD ---
EXAMINATION TYPE: Axial Bone Density DATE OF EXAM: 05/31/2024 CLINICAL HISTORY: 63 years old Female. 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 History of Fracture in Adulthood: no Secondary Osteoporosis: 1. Type 1 Diabetes: no 2. Hyperthyroidism: no 3. Menopause before 45: no 4. Malnutrition: no 5. Chronic liver disease: no Rheumatoid Arthritis: no Current Tobacco Use: yes RISK FACTORS HISTORY OF: Hip Fracture (Right/Left): no Spine Fracture: no History of Wrist Fracture: no Surgery to Spine/Hip(right/left)/Wrist (right/left): no MEDICATIONS: Thyroid Medications: no Osteoporosis Medications: no EXAM MEASUREMENTS: Bone mineral densitometry was performed using the God[employer] System. Bone mineral density as measured about the Lumbar spine is: ----- L1-L4(G/cm2): 0.937 T Score Values are as follows: ----- L1: -2.7 ----- L2: -2.3 ----- L3: -1.0 ----- L4: -2.4 ----- L1-L4: -2.0 Z Score Values are as follows: ----- L1: -1.0 ----- L2: -0.6 ----- L3: 0.7 ----- L4: -0.7 ----- L1-L4: Baseline Study Bone mineral density about the R hip (g/cm2): 0.759 Bone mineral density about the L hip (g/cm2): 0.756 T Score values are as follows: -----R Neck: -2.0 -----L Neck: -2.0 -----R Total: -2.0 -----L Total: -2.0 Z Score values are as follows: -----R Neck: -0.5 -----L Neck: -0.5 -----R Total: -0.7 -----L Total: -0.7 Baseline Study FRAX%s: The graph provided illustrates a 11.5% chance for a major osteoporotic fx and a 2.9% chance f or the hips probability for fx in 10 years time. IMPRESSION: Osteopenia (T Score between -2.5 and -1). There is slightly increased risk of fracture and the patient may be considered for treatment. Re-Screen 2-5 years. NOTE: T-SCORE=SD OF THE YOUNG ADULT MEAN. [facility], , 06/01/2024 6:16 PM
== END | disposition home or self-care (01) ==
LOC: RADBDWWP 10:02
PROVIDERS: ATTEND Internal Medicine
DX: N95.8 Other specified menopausal and perimenopausal disorders (principal); M85.89 Other specified disorders of bone density and structure, multiple sites
CPT/HCPCS: 77080

== ENCOUNTER → 2024-06-18 | Outpatient (CLI) | payer MEDICARE, OTHER ==
[2024-06-18 15:17] VITALS: BP 143/85; PULSE 92; RESP 16; TEMP 97.3
--- NOTE | 2024-06-18 15:54 | P.PN ---
Progress Note - Text Patient has come for follow-up visit and medication refill. Pain is unchanged. No new neurological symptoms. No new bowel bladder dysfunction. Physical exam is essentially unchanged. Assessment and plan= chronic low back pain secondary to lumbar degenerative disc disease , lumbar spondylosis with lumbar facet arthropathy . Prescribed her pain medications today. Chronic and current use of high-risk medication (opioids) Patient denies any side effects of the current pain medication and the current treatment/medication helping the patient to do activity of daily living , Diagnoses, prognosis, treatment options, including but not limited to physical therapy, medication management, interventional therapies, and surgery, were discussed with the patient All the questions answered The narcotic consent was signed and patient agreed and understood the side effects and complications of opioid treatment. Patient signed the narcotic agreement, and was orally counseled, not to overuse, not to abuse, not to Divert , not tp sell pain medication, and to take it as prescribed only, Patient was counseled not to drive or operate heavy equipment while using narcotic medication, and advised not to use alcohol or any Illicit drugs while using the narcotis. understanding that lack of compliance with any of the above instructions, will likely to cause discharge from, the pain service, not to renew his narcotic prescriptions MAPS Reviwed and it was apropriate . Medication managements= patient will be given prescription refills for . I have spent 35 minutes on patient care today. The time was used to review the medical records including relevant urine studies and Prescription history (MAP s), review of the available imaging, evaluation and examination of the patient, coordination of care with the medical staff and if applicable referring physicians, as well as creation of the medical record. Maps were checked and appropriate, opioid start talking form is on file and updated, urine drug screens of been appropriate and have been reviewed. ,
== END ==
LOC: PNWHC3 14:12
PROVIDERS: ATTEND Pain Medicine Interventional Pain Medicine
DX: M51.360 Other intervertebral disc degeneration, lumbar region with discogenic back pain only (principal); M47.816 Spondylosis without myelopathy or radiculopathy, lumbar region; F17.210 Nicotine dependence, cigarettes, uncomplicated; Z79.891 Long term (current) use of opiate analgesic; Z88.1 Allergy status to other antibiotic agents; Z88.6 Allergy status to analgesic agent; Z88.8 Allergy status to other drugs, medicaments and biological substances
CPT/HCPCS: 99211

== ENCOUNTER → 2024-06-20 | Day surgery (SDC) | payer MEDICARE, OTHER ==
[2024-06-19 08:36] VITALS: BMI 25.0
[~2024-06-20] MED LIST changes: +ALPRAZolam 0.25 MG TAB PO PRN; +ALPRAZolam 0.5 MG TAB PO PRN; +ATORVASTATIN 80 MG TAB PO STA; +HEPARIN SODIUM,PORCINE (1 ML) 2,500 UNIT in SODIUM CHLORIDE 0.9% 250 ML IRRIGATION PRN; +HEPARIN SODIUM,PORCINE 10,000 UNIT in SODIUM CHLORIDE 0.9% 1,000 ML IRRIGATION PRN; -LACTATED RINGERS 1,000 ML IV SCH; +NITROGLYCERIN SL TABS 0.4 MG TAB SUBLINGUAL PRN; +SODIUM CHLORIDE 0.9% 1,000 ML in EMPTY BAG 1 BAG IV SCH
[2024-06-20 08:08] LABS: Glucose,Whole Blood 113 mg/dL (70-110)
[2024-06-20 08:10] VITALS: TEMP 97.8
[2024-06-20] MEDS: ASPIRIN 325 MG TAB PO STA (08:18)
[2024-06-20] MEDS: IV FLUID CONTINUATION 1,000 ML IV ONE (08:20)
[2024-06-20] MEDS: fentaNYL (PF) 50 MCG/ML 2 ML AMP IVP ONE (09:09)
[2024-06-20] MEDS: MIDAZOLAM 2 MG/2 ML VIAL IVP ONE (09:09)
[2024-06-20] MEDS: LIDOCAINE 1% INJ 10MG/ML (30 ML VIAL-PF) SQ ONE ×2 (09:11→09:14)
[2024-06-20] MEDS: VERAPAMIL SYRINGE (5 MG/10 ML) INTRAARTER ONE (09:15)
[2024-06-20] MEDS: HEPARIN SODIUM 1,000 UN/ML (10ML VL) IVP ONE (09:17)
[2024-06-20] MEDS: IOPAMIDOL-300 30ML BTL INJ ONE (09:27)
[2024-06-20 11:48] VITALS: RESP 20
[2024-06-20 11:53] VITALS: BP 121/60; PULSE 77
--- NOTE | 2024-06-20 12:17 | CC ---
CARDIAC CATHETERIZATION REPORT INDICATION: Unstable angina. PROCEDURE NOTE: After obtaining informed consent, left heart catheterization and coronary angiogram were performed via the right radial artery using standard Latasha catheters. The patient tolerated the procedure well without any obvious immediate complications. Right radial artery access was obtained using Seldinger technique. Six-Bengali sheath was placed. Catheters and wires were floated into the ascending aorta under fluoroscopic guidance. The patient was given verapamil and heparin per protocol. A TR band was used for hemostasis. FINDINGS: 1. HEMODYNAMICS: Left ventricular end-diastolic pressure is 8 to 10 mm. There is no significant gradient across the aortic valve. 2. LEFT VENTRICULOGRAM: Left ventriculogram is not performed. 3. ANGIOGRAPHIC DATA: a.Left main coronary artery: Left main coronary artery is a normal-sized vessel and is free of stenosis. Divides into left anterior descending coronary artery and circumflex coronary artery. b. LAD shows mild nonobstructive disease. c.Circumflex coronary artery and its branches are free of significant stenosis. d.Right coronary artery is a large dominant vessel and shows mild nonobstructive plaque in its midportion. CONCLUSION: Mild nonobstructive disease. PLAN: The patient's chest discomfort could be related to spasm on top of the atherosclerotic clot that she has and her management is going to be with nitrates, risk factor modification, and optimal medical therapy. MMODL / IJN: [id number] /
[2024-06-20] MEDS: HYDROcodone/APAP 7.5-325MG 1 EACH TAB PO ONE (12:30)
== END ==
LOC: CATHCVL 07:26
PROVIDERS: ATTEND Internal Medicine Cardiovascular Disease
DX: I25.110 Atherosclerotic heart disease of native coronary artery with unstable angina pectoris (principal); E11.9 Type 2 diabetes mellitus without complications; E78.2 Mixed hyperlipidemia; J44.9 Chronic obstructive pulmonary disease, unspecified; F17.210 Nicotine dependence, cigarettes, uncomplicated; Z79.51 Long term (current) use of inhaled steroids; Z79.84 Long term (current) use of oral hypoglycemic drugs; Z79.85 Long-term (current) use of injectable non-insulin antidiabetic drugs; Z79.1 Long term (current) use of non-steroidal anti-inflammatories (NSAID); Z79.83 Long term (current) use of bisphosphonates; Z79.899 Other long term (current) drug therapy; Z88.8 Allergy status to other drugs, medicaments and biological substances
CPT/HCPCS: 93458; C1769; C1894; J2250; J2003; J3010; J1644

== ENCOUNTER 2024-08-12 15:09 | Emergency (ER) | payer MEDICARE, OTHER ==
[2024-08-12 15:36] VITALS: RESP 20
[2024-08-12 16:22] LABS: Appearance,Urine Clear (Clear); Bacteria,Urine Rare /hpf; Bilirubin,Urine Negative (Negative); Blood,Urine Moderate (Negative); Color,Urine Colorless; Glucose,Urine (UA) 3+ (Negative); Ketones,Urine Negative (Negative); Leukocyte Esterase,Urine Negative (Negative); Mucus,Urine Rare /hpf; Nitrite,Urine Negative (Negative); PH, Urine 5.5 (5.0-8.0); Protein,Urine Negative (Negative); RBC,Urine 1 /hpf (0-5); Specific Gravity,Urine 1.004 (1.001-1.035); Squamous Epithelial Cell,Urine 1 /hpf (0-4); Urobilinogen,Urine <2.0 mg/dL (<2.0); WBC,Urine 2 /hpf (0-5)
--- NOTE | 2024-08-12 17:08 | CT ---
EXAMINATION TYPE: CT abdomen pelvis wo con DATE OF EXAM: 08/12/2024 4:52 PM COMPARISON: None. CLINICAL INDICATION: Female, 63 years old with history of right flank pain to abd, hx stone, Right fl ank pain to abd, hx of stones. TECHNIQUE: Axial images with sagittal coronal reformats. Examination of the solid and hollow viscera is limited given the lack of contrast. CT DLP: 442.1 mGycm, Automated exposure control for dose reduction was used. FINDINGS: LUNG BASES: No evidence for nodule. No evidence for infiltrate. LIVER/GB: The gallbladder is unremarkable. No space-occupying hepatic lesion. PANCREAS: No pancreatic mass identified. No inflammatory process seen. SPLEEN: No evidence for splenomegaly. No intrasplenic lesions seen. ADRENALS: No adrenal nodules identified. No evidence for thickening. KIDNEYS: Mild right-sided hydronephrosis and renal edema. The right ureter appears to be of normal ca liber. Correlate for recently passed calculus versus nonradiopaque calculus. The left kidney has a no rmal appearance. No renal masses seen. Urinary bladder is unremarkable. No calculus seen within the u rinary bladder wall or lumen. BOWEL: Appendix has a normal appearance. No evidence of bowel obstruction. No inflammatory process. Lymph nodes: No evidence for adenopathy greater than 1 cm. Abdominal aorta: Atheromatous changes seen. No evidence for aneurysm. Genital organs: No significant abnormality. Other: No significant abnormality. IMPRESSION: Mild right-sided hydronephrosis and renal edema. The right ureter appears to be of normal caliber. Co rrelate for recently passed calculus versus nonradiopaque calculus. [facility], , 08/12/2024 5:05 PM
[2024-08-12] MEDS: LIDOCAINE 4% PATCH TOPICAL ONE (17:11)
[2024-08-12] MEDS: HYDROmorphone 1 MG/ML 1 ML SYRINGE IVP STA (17:13)
[2024-08-12 17:32] LABS: Basophils # (A) 0.1 k/uL (0-0.2); Basophils % (A) 1 %; Eosinophils # (A) 0.4 k/uL (0-0.7); Eosinophils % (A) 3 %; HCT 46.7 % (34.0-46.0); HGB 14.8 gm/dL (11.4-16.0); Lymphocytes # (A) 1.7 k/uL (1.0-4.8); Lymphocytes % (A) 12 %; MCH 27.8 pg (25.0-35.0); MCHC 31.6 g/dL (31.0-37.0); MCV 88.1 fL (80.0-100.0); Mean Platelet Volume 7.3; Monocytes # (A) 0.8 k/uL (0-1.0); Monocytes % (A) 6 %; Neutrophils # (A) 10.8 k/uL (1.3-7.7); Neutrophils % (A) 78 %; Platelet Count 292 k/uL (150-450); RDW 12.7 % (11.5-15.5); WBC 13.8 k/uL (3.8-10.6)
[2024-08-12 17:40] LABS: ALT 26 U/L (4-34); AST 24 U/L (14-36); African American GFR (CKD) 61 (>60 ml/min/1.73 sqM); Albumin 4.7 g/dL (3.5-5.0); Alkaline Phosphatase 70 U/L (38-126); Anion Gap 10 mmol/L; Blood Urea Nitrogen 15 mg/dL (7-17); Calcium 9.5 mg/dL (8.4-10.2); Carbon Dioxide 31 mmol/L (22-30); Chloride 93 mmol/L (98-107); Glucose 110 mg/dL (74-99); Non-African American GFR(CKD) 53 (>60 ml/min/1.73 sqM); Potassium 4.4 mmol/L (3.5-5.1); Sodium 134 mmol/L (137-145); Total Bilirubin 0.5 mg/dL (0.2-1.3)
--- NOTE | 2024-08-12 18:18 | ED ---
General Adult HPI - General Chief complaint: Urogenital Stated complaint: back pain abd pain Time Seen by Provider: 08/12/24 15:35 Source: patient Mode of arrival: ambulatory Limitations: no limitations - History of Present Illness Initial comments: 63-year-old female who presents emergency department reporting right-sided flank pain which radiates around to the right abdomen. Patient reports to chronic back pain however reports that her home [place] is not helping with her current symptoms. She also reports that she has had a little bit of urinary frequency which is abnormal for her typical pain. Patient is in a pain contract. She fol lows with Dr. Childers. States that she is currently undergoing all new imaging of her lower back to help figure out treatment options. Patient feels as if she is having exacerbation of her pain and has no other home options for pain control. She denies hematuria. No black or bloody stools. No fevers. No numbness, tingling or weakness in her extremities. No other alleviating, precipitating modifying factors - Related Data Home Medications Medication Instructions Recorded Confirmed Dapagliflozin Propanediol [Farxiga] 10 mg PO DAILY 09/14/22 07/16/24 Pantoprazole [Protonix] 40 mg PO DAILY 09/14/22 07/16/24 metFORMIN HCL 500 mg PO BID 09/14/22 07/16/24 traZODone HCL [Desyrel] 200 mg PO HS PRN 09/14/22 07/16/24 Rosuvastatin [Crestor] 10 mg PO DAILY 08/23/23 07/16/24 Tirzepatide [Mounjaro] 5 mg SQ FR 08/23/23 07/16/24 ARIPiprazole [Abilify] 5 mg PO QAM 10/25/23 07/16/24 DULoxetine HCL [Cymbalta] 90 mg PO DAILY 10/25/23 07/16/24 Albuterol Inhaler [Ventolin Hfa 1 - 2 puff INHALATION Q6H PRN 12/12/23 07/16/24 Inhaler] Alendronate Sodium [Fosamax] 70 mg PO WEEKLY 06/19/24 07/16/24 Celecoxib [CeleBREX] 200 mg PO BID 06/19/24 07/16/24 Gabapentin [Neurontin] 100 mg PO HS 06/19/24 07/16/24 Isosorbide Mononitrate ER [Imdur] 30 mg PO DAILY 06/19/24 07/16/24 Multivitamins, Thera [Multivitamin 1 tab PO DAILY 06/19/24 07/16/24 (formulary)] Ubidecarenone [Co Q-10] 100 mg PO HS 06/19/24 07/16/24 hydrOXYzine HCL [Atarax] 10 mg PO QID PRN 06/19/24 07/16/24 Previous Rx's Medication Instructions Recorded HYDROcodone/APAP 7.5-325MG [[place] 1 tab PO BID PRN 30 Days #60 tab 07/16/24 7.5-325] HYDROcodone/APAP 7.5-325MG [[place] 1 tab PO BID PRN 30 Days #60 tab 07/16/24 7.5-325] Ketorolac [Toradol] 10 mg PO Q8HR #15 tab 08/12/24 Allergies Allergy/AdvReac Type Severity Reaction Status Date / Time clindamycin HCl Allergy Rash/Hives Verified 07/16/24 14:13 [From Cleocin] clindamycin palmitate HCl Allergy Rash/Hives Verified 07/16/24 14:13 [From Cleocin] clindamycin phosphate Allergy Rash/Hives Verified 07/16/24 14:13 [From Cleocin] lisinopril Allergy Anaphylaxis Verified 07/16/24 14:13 Review of Systems ROS Statement: Those systems with pertinent positive or pertinent negative responses have been documented in the HPI. ROS Other: All systems not noted in ROS Statement are negative. Past Medical History Past Medical History: Cancer, COPD, Diabetes Mellitus, GERD/Reflux, Hearing Disorder / Deafness, Hyperlipidemia Additional Past Medical History / Comment(s): Some trouble hearing. Chronic back pain. Intermittent N/V. Skin cancer on arms, mostly right shoulder, had biopsy recently, still healing. History of Any Multi-Drug Resistant Organisms: None Reported Past Surgical History: Section, Cholecystectomy, Tonsillectomy, Tubal Ligation Additional Past Surgical History / Comment(s): LAPAROSCOPIC, COLONOSCOPY X2 WITH POLYPS REMOVED, skin biopsy, Pain Procedures. Past Anesthesia/Blood Transfusion Reactions: No Reported Reaction Past Psychological History: Anxiety, Depression, PTSD Smoking Status: Current every day smoker - Past Family History Mother Family Medical History: Cancer, Diabetes Mellitus Additional Family Medical History / Comment(s): ESOPHAGEAL AND LUNG CANCER. Father Family Medical History: Cancer, Hypertension Additional Family Medical History / Comment(s): Lung cancer. Sister(s) Family Medical History: Cancer Additional Family Medical History / Comment(s): SKIN CANCER. General Exam Limitations: no limitations General appearance: alert, in no apparent distress Head exam: Present: atraumatic, normocephalic, normal inspection Eye exam: Present: normal appearance, PERRL, EOMI. Absent: scleral icterus, conjunctival injection, periorbital swelling ENT exam: Present: normal exam, mucous membranes moist Neck exam: Present: normal inspection. Absent: tenderness, meningismus, lymphadenopathy Respiratory exam: Present: normal lung sounds bilaterally. Absent: respiratory distress, wheezes, rales, rhonchi, stridor Cardiovascular Exam: Present: regular rate, normal rhythm, normal heart sounds. Absent: systolic murmur, diastolic murmur, rubs, gallop, clicks GI/Abdominal exam: Present: soft, normal bowel sounds. Absent: distended, ten derness, guarding, rebound, rigid Extremities exam: Present: normal inspection, full ROM, normal capillary refill. Absent: tenderness, pedal edema, joint swelling, calf tenderness Back exam: Present: paraspinal tenderness (To the bilateral paraspinal muscles in the lumbar region) Neurological exam: Present: alert, oriented X3, CN II-XII intact Psychiatric exam: Present: normal affect, normal mood Skin exam: Present: warm, dry, intact, normal color. Absent: rash Course Vital Signs 08/12/24 08/12/24 15:32 18:28 Temperature 98.4 F 98.2 F Pulse Rate 103 H 90 Respiratory 20 20 Rate Blood Pressure 165/81 144/80 O2 Sat by Pulse 98 98 Oximetry Medical Decision Making - Medical Decision Making Was pt. sent in by a medical professional or institution (, PA, PLASMA CUTTING MACHINE OPERATOR, urgent care, hospital, or retirement...) When possible be specific @ -No Did you speak to anyone other than the patient for history (EMS, parent, family, police, friend...)? What history was obtained from this source @ -No Did you review nursing and triage notes (agree or disagree)? Why? @ -I reviewed and agree with nursing and triage notes Were old charts reviewed (outside hosp., previous admission, EMS record, old EKG, old radiological studies, urgent care reports/EKG's, retirement records)? Report findings @ -No old charts were reviewed Differential Diagnosis (chest pain, altered mental status, abdominal pain women, abdominal pain men, vaginal bleeding, weakness, fever, dyspnea, syncope, headache, dizziness, GI bleed, back pain, seizure, CVA, palpatations, mental health, musculoskeletal)? @ -Differential Back Pain: Strain, zoster, cauda equina syndrome, epidural abscess, vertebral osteomyelitis, discitis, fracture, subluxation, disc herniation, DJD, spinal stenosis, dissection, AAA, pancreatitis, peptic ulcer disease, pyelonephritis, kidney stone, this is not meant to be an all-inclusive list. EKG interpreted by me (3pts min.). @ -Not done X-rays interpreted by me (1pt min.). @ -None done CT interpreted by me (1pt min.). @ -Yes which demonstrates mild hydronephrosis on the right U/S interpreted by me (1pt. min.). @ -None done What testing was considered but not performed or refused? (CT, X-rays, U/S, labs)? Why? @ -None What meds were considered but not given or refused? Why? @ -None Did you discuss the management of the patient with other professionals (professionals i.e. , PA, PLASMA CUTTING MACHINE OPERATOR, lab, RT, psych nurse, geriatric social work professor, underwriting sales representative, teacher, consumer loan officer, rn case mgr)? Give summary @ -No Was smoking cessation discussed for >3mins.? @ -No Was critical care preformed (if so, how long)? @ -No Were there social determinants of health that impacted care today? How? (Homelessness, low income, unemployed, alcoholism, drug addiction, transportation, low edu. Level, literacy, decrease access to med. care, half-way, rehab)? @ -No Was there de-escalation of care discussed even if they declined (Discuss DNR or withdrawal of care, Hospice)? DNR status @ -No What co-morbidities impacted this encounter? (DM, HTN, Smoking, COPD, CAD, Can cer, CVA, ARF, Chemo, Hep., AIDS, mental health diagnosis, sleep apnea, morbid obesity)? @ -Chronic back pain Was patient admitted / discharged? Hospital course, mention meds given and route, prescriptions, significant lab abnormalities, going to OR and other pertinent info. @ -Upon arrival patient seen and evaluated in bed 32. Thorough history and physical exam was performed. Patient was given 1 mg IV injection of Dilaudid. Laboratory studies are conducted. Patient does provide urine sample. CT was performed due to reported pain radiating to the front. Patient does have some hydronephrosis. There is concern that the patient may have a nonopaque stone or a recently passed stone. Patient also has additional lumbar back pain issues. Results are discussed with the patient. She has had improvement in her pain with the pain shot. I did discuss the treatment options. Patient is in a pain contract and therefore I did discuss that I may only prescribe nonnarcotic for the patient. She was agreeable to Toradol prescription. She may take this in addition to her home [place]. Call the neurologist tomorrow morning. I recommend that they follow-up with urology for the hydronephrosis and return for any new or worsening symptoms. Patient was agreeable to this and she was discharged in stable condition Undiagnosed new problem with uncertain prognosis? @ -No Drug Therapy requiring intensive monitoring for toxicity (Heparin, Nitro, Insulin, Cardizem)? @ -No Were any procedures done? @ -No Diagnosis/symptom? @ -Acute right flank pain, right hydronephrosis, history of chronic back pain Acute, or Chronic, or Acute on Chronic? @ -Acute on chronic Uncomplicated (without systemic symptoms) or Complicated (systemic symptoms)? @ -Complicated Side effects of treatment? @ -No Exacerbation, Progression, or Severe Exacerbation? @ -No Poses a threat to life or bodily function? How? (Chest pain, [place], [place], pneumonia, PE, COPD, DKA, ARF, appy, cholecystitis, CVA, Diverticulitis, Homicidal, Suicidal, threat to staff... and all critical care pts) @ -No - Lab Data Result diagrams: 08/12/24 17:26 08/12/24 17: Lab Results 08/12/24 08/12/24 08/12/24 Range/Units 15:38 17:26 17:26 WBC 13.8 H (3.8-10.6) k/uL RBC 5.30 (3.80-5.40) m/uL Hgb 14.8 (11.4-16.0) gm/dL Hct 46.7 H (34.0-46.0) % MCV 88.1 (80.0-100.0) fL MCH 27.8 (25.0-35.0) pg MCHC 31.6 (31.0-37.0) g/dL RDW 12.7 (11.5-15.5) % Plt Count 292 (150-450) k/uL MPV 7.3 Neutrophils % 78 % Lymphocytes % 12 % Monocytes % 6 % Eosinophils % 3 % Basophils % 1 % Neutrophils # 10.8 H (1.3-7.7) k/uL Lymphocytes # 1.7 (1.0-4.8) k/uL Monocytes # 0.8 (0-1.0) k/uL Eosinophils # 0.4 (0-0.7) k/uL Basophils # 0.1 (0-0.2) k/uL Sodium 134 L (137-145) mmol/L Potassium 4.4 (3.5-5.1) mmol/L Chloride 93 L (98-107) mmol/L Carbon Dioxide 31 H (22-30) mmol/L Anion Gap 10 mmol/L BUN 15 (7-17) mg/dL Creatinine 1.10 H (0.52-1.04) mg/dL Est GFR (CKD-EPI)AfAm 61 (>60 ml/min/1.73 sqM) Est GFR (CKD-EPI)NonAf 53 (>60 ml/min/1.73 sqM) Glucose 110 H (74-99) mg/dL Plasma Lactic Acid Terrell (0.7-2.0) mmol/L Calcium 9.5 (8.4-10.2) mg/dL Total Bilirubin 0.5 (0.2-1.3) mg/dL AST 24 (14-36) U/L ALT 26 (4-34) U/L Alkaline Phosphatase 70 (38-126) U/L Total Protein 8.0 (6.3-8.2) g/dL Albumin 4.7 (3.5-5.0) g/dL Urine Color Colorless Urine Appearance Clear (Clear) Urine pH 5.5 (5.0-8.0) Ur Specific Novelty 1.004 (1.001-1.035) Urine Protein Negative (Negative) Urine Glucose (UA) 3+ H (Negative) Urine Ketones Negative (Negative) Urine Blood Moderate H (Negative) Urine Nitrite Negative (Negative) Urine Bilirubin Negative (Negative) Urine Urobilinogen <2.0 (<2.0) mg/dL Ur Leukocyte Esterase Negative (Negative) Urine RBC 1 (0-5) /hpf Urine WBC 2 (0-5) /hpf Ur Squamous Epith Cells 1 (0-4) /hpf Urine Bacteria Rare H (None) /hpf Urine Mucus Rare H (None) /hpf 08/12/24 Range/Units 17:26 WBC (3.8-10.6) k/uL RBC (3.80-5.40) m/uL Hgb (11.4-16.0) gm/dL Hct (34.0-46.0) % MCV (80.0-100.0) fL MCH (25.0-35.0) pg MCHC (31.0-37.0) g/dL RDW (11.5-15.5) % Plt Count (150-450) k/uL MPV Neutrophils % % Lymphocytes % % Monocytes % % Eosinophils % % Basophils % % Neutrophils # (1.3-7.7) k/uL Lymphocytes # (1.0-4.8) k/uL Monocytes # (0-1.0) k/uL Eosinophils # (0-0.7) k/uL Basophils # (0-0.2) k/uL Sodium (137-145) mmol/L Potassium (3.5-5.1) mmol/L Chloride (98-107) mmol/L Carbon Dioxide (22-30) mmol/L Anion Gap mmol/L BUN (7-17) mg/dL Creatinine (0.52-1.04) mg/dL Est GFR (CKD-EPI)AfAm (>60 ml/min/1.73 sqM) Est GFR (CKD-EPI)NonAf (>60 ml/min/1.73 sqM) Glucose (74-99) mg/dL Plasma Lactic Acid Terrell 1.0 (0.7-2.0) mmol/L Calcium (8.4-10.2) mg/dL Total Bilirubin (0.2-1.3) mg/dL AST (14-36) U/L ALT (4-34) U/L Alkaline Phosphatase (38-126) U/L Total Protein (6.3-8.2) g/dL Albumin (3.5-5.0) g/dL Urine Color Urine Appearance (Clear) Urine pH (5.0-8.0) Ur Specific Novelty (1.001-1.035) Urine Protein (Negative) Urine Glucose (UA) (Negative) Urine Ketones (Negative) Urine Blood (Negative) Urine Nitrite (Negative) Urine Bilirubin (Negative) Urine Urobilinogen (<2.0) mg/dL Ur Leukocyte Esterase (Negative) Urine RBC (0-5) /hpf Urine WBC (0-5) /hpf Ur Squamous Epith Cells (0-4) /hpf Urine Bacteria (None) /hpf Urine Mucus (None) /hpf Disposition Clinical Impression: Hydronephrosis, Flank pain Disposition: HOME SELF-CARE Condition: Stable Instructions (If sedation given, give patient instructions): Flank Pain (ED) Additional Instructions: Call Dr. Bull office in the morning to request permission for a change in your pain medications. You may fill and take the Toradol which would be safe to take with your other medications. Follow-up with urologist as you do have some swelling to that right kidney. Return for any new or worsening symptoms Prescriptions: Ketorolac [Toradol] 10 mg PO Q8HR #15 tab Is patient prescribed a controlled substance at d/c from ED?: No Referrals: None,Stated [Primary Care Provider] - 1-2 days Hope Stack MD [Medical Doctor] - 1-2 days Morgan De MD [STAFF PHYSICIAN] - 1-2 days Time of Disposition: 18:17
[2024-08-12 18:29] VITALS: BP 144/80; PULSE 90; TEMP 98.2
== END 2024-08-12 18:28 | disposition home or self-care (01) ==
LOC: EC 15:09
DX: N13.30 Unspecified hydronephrosis (principal); R10.9 Unspecified abdominal pain; F17.200 Nicotine dependence, unspecified, uncomplicated; Z88.1 Allergy status to other antibiotic agents; Z88.8 Allergy status to other drugs, medicaments and biological substances
CPT/HCPCS: 99284 ×2; 96374 ×2; 36415; 80053; 83605; 85025; 81001; 74176; J1171

== ENCOUNTER → 2024-10-04 | Outpatient (CLI) | payer MEDICARE, OTHER ==
--- NOTE | 2024-10-04 10:25 | US ---
EXAMINATION TYPE: US kidneys/renal and bladder DATE OF EXAM: 10/04/2024 COMPARISON: CT 08/12/2024 CLINICAL INDICATION: Female, 63 years old with history of N13.30 HYDRONEPHROSIS; [place] on right side visualized on prior CT TECHNIQUE: Grayscale imaging of the bilateral kidneys and urinary bladder: FINDINGS: EXAM MEASUREMENTS: Right Kidney: 11.1 x 4.5 x 5.1 cm Left Kidney: 10.7 x 5.4 x 4.8 cm Right Kidney: Appeared wnl Left Kidney: Appeared wnl Bladder: wnl Bilateral Jets seen: Yes There is no evidence for hydronephrosis at this point in time. No nephrolithiasis is seen. Corticom edullary differentiation is maintained bilaterally. No perinephric fluid collections. No masses are i dentified. The urinary bladder is anechoic. Bilateral ureteral jets identified. IMPRESSION: No hydronephrosis or nephrolithiasis. [facility], , 10/04/2024 10:22 AM
== END | disposition home or self-care (01) ==
LOC: RADUSWWP 09:48
PROVIDERS: ATTEND Urology
DX: N13.30 Unspecified hydronephrosis (principal)
CPT/HCPCS: 76770

== ENCOUNTER 2024-11-09 16:36 | Emergency (ER) | payer MEDICARE, OTHER ==
[2024-11-09 16:57] VITALS: TEMP 98.4
[2024-11-09 17:31] LABS: Basophils # (A) 0.07 10*3/uL (0.00-0.10); Basophils % (A) 0.7 %; Eosinophils # (A) 0.25 10*3/uL (0.04-0.35); Eosinophils % (A) 2.6 %; HCT 40.3 % (37.2-46.3); HGB 13.7 g/dL (12.0-15.0); Lymphocytes # (A) 2.33 10*3/uL (0.90-5.00); Lymphocytes % (A) 24.3 %; MCH 28.7 pg (27.0-32.0); MCV 84.5 fL (80.0-97.0); Mean Platelet Volume 9.4 fL (9.5-12.2); Monocytes # (A) 0.63 10*3/uL (0.20-1.00); Monocytes % (A) 6.6 %; Neutrophils % (A) 65.6 %; Platelet Count 313 10*3/uL (140-440); RBC 4.77 10*6/uL (4.10-5.20); RDW 12.2 % (11.5-14.5)
--- NOTE | 2024-11-09 17:43 | ED ---
Chest Pain HPI - General Source: patient, RN notes reviewed Mode of arrival: ambulatory Limitations: no limitations <Carlos Schaeffer - Last Filed: 11/09/24 17:43> <Jun Nagel - Last Filed: 11/09/24 20:07> - General Chief Complaint: Chest Pain Stated Complaint: Back Pain,L Arm,Chest Pain Time Seen by Provider: 11/09/24 16:53 - History of Present Illness Initial Comments: This is a 63-year-old female with history of DM, hyperlipidemia, COPD and family cardiac history presenting for worsening chest pain x 3 days. Patient states she has been having intermittent chest pain since May 2024, since her catheterization. States she sees Dr. Wright, who is aware of her intermittent chest pain. Patient states symptoms/pain have worsened recently, now radiating to her left arm and back. States back pain improved after going to a chiropractor. Patient describes pain as "stabbing and muscle jumping". States she took sublingual nitroglycerin which worsened her symptoms. (Carlos Schaeffer) This is a 63-year-old female who presents to the emergency department with a past medical history significant for smoking diabetes hyperglycemia COPD and a family history of heart disease. Patient states for the last week she has been having back pain on the left side a little bit below her scapula. Patient states over the last day and a half she has had chest pain that radiates down her left arm which is new. Patient states she took sublingual nitro and Nexium seem to make her pain worse. Patient states the back pain seems to be unrelated to the chest pain and arm pain. Patient does not complain of any shortness of breath or difficulty breathing. Patient Nuys any swelling to the legs or calf tenderness. (Jun Nagel) - Related Data Home Medications Medication Instructions Recorded Confirmed Dapagliflozin Propanediol [Farxiga] 10 mg PO DAILY 09/14/22 07/16/24 Pantoprazole [Protonix] 40 mg PO DAILY 09/14/22 07/16/24 metFORMIN HCL 500 mg PO BID 09/14/22 07/16/24 traZODone HCL [Desyrel] 200 mg PO HS PRN 09/14/22 07/16/24 Rosuvastatin [Crestor] 10 mg PO DAILY 08/23/23 07/16/24 Tirzepatide [Mounjaro] 5 mg SQ FR 08/23/23 07/16/24 ARIPiprazole [Abilify] 5 mg PO QAM 10/25/23 07/16/24 DULoxetine HCL [Cymbalta] 90 mg PO DAILY 10/25/23 07/16/24 Albuterol Inhaler [Ventolin Hfa 1 - 2 puff INHALATION Q6H PRN 12/12/23 07/16/24 Inhaler] Alendronate Sodium [Fosamax] 70 mg PO WEEKLY 06/19/24 07/16/24 Celecoxib [CeleBREX] 200 mg PO BID 06/19/24 07/16/24 Gabapentin [Neurontin] 100 mg PO HS 06/19/24 07/16/24 Isosorbide Mononitrate ER [Imdur] 30 mg PO DAILY 06/19/24 07/16/24 Multivitamins, Thera [Multivitamin 1 tab PO DAILY 06/19/24 07/16/24 (formulary)] Ubidecarenone [Co Q-10] 100 mg PO HS 06/19/24 07/16/24 hydrOXYzine HCL [Atarax] 10 mg PO QID PRN 06/19/24 07/16/24 Previous Rx's Medication Instructions Recorded HYDROcodone/APAP 7.5-325MG [Hurst 1 tab PO BID PRN 30 Days #60 tab 07/16/24 7.5-325] HYDROcodone/APAP 7.5-325MG [Hurst 1 tab PO BID PRN 30 Days #60 tab 07/16/24 7.5-325] Ketorolac [Toradol] 10 mg PO Q8HR #15 tab 08/12/24 Allergies Allergy/AdvReac Type Severity Reaction Status Date / Time clindamycin HCl Allergy Rash/Hives Verified 11/09/24 16:57 [From Cleocin] clindamycin palmitate HCl Allergy Rash/Hives Verified 11/09/24 16:57 [From Cleocin] clindamycin phosphate Allergy Rash/Hives Verified 11/09/24 16:57 [From Cleocin] lisinopril Allergy Anaphylaxis Verified 11/09/24 16:57 Review of Systems ROS Other: All systems not noted in ROS Statement are negative. <Carlos Schaeffer - Last Filed: 11/09/24 17:43> ROS Other: All systems not noted in ROS Statement are negative. <Jun Nagel - Last Filed: 11/09/24 20:07> ROS Statement: Those systems with pertinent positive or pertinent negative responses have been documented in the HPI. Past Medical History Past Medical History: Cancer, COPD, Diabetes Mellitus, GERD/Reflux, Hearing Disorder / Deafness, Hyperlipidemia Additional Past Medical History / Comment(s): Some trouble hearing. Chronic back pain. Intermittent N/V. Skin cancer on arms, mostly right shoulder, had biopsy recently, still healing. History of Any Multi-Drug Resistant Organisms: None Reported Past Surgical History: Section, Cholecystectomy, Tonsillectomy, Tubal Ligation Additional Past Surgical History / Comment(s): LAPAROSCOPIC, COLONOSCOPY X2 WITH POLYPS REMOVED, skin biopsy, Pain Procedures. Past Anesthesia/Blood Transfusion Reactions: No Reported Reaction Past Psychological History: Anxiety, Depression, PTSD Smoking Status: Current every day smoker Past Alcohol Use History: None Reported Past Drug Use History: None Reported - Past Family History Mother Family Medical History: Cancer, Diabetes Mellitus Additional Family Medical History / Comment(s): ESOPHAGEAL AND LUNG CANCER. Father Family Medical History: Cancer, Hypertension Additional Family Medical History / Comment(s): Lung cancer. Sister(s) Family Medical History: Cancer Additional Family Medical History / Comment(s): SKIN CANCER. <Carlos Schaeffer - Last Filed: 11/09/24 17:43> General Exam Limitations: no limitations <Carlos Schaeffer - Last Filed: 11/09/24 17:43> <Jun Nagel - Last Filed: 11/09/24 20:07> - General Exam Comments Initial Comments: Visual Physical Exam Vital signs reviewed General: Well-appearing, nontoxic, no acute distress. Head: Normocephalic, atraumatic Eyes: PERRLA, EOMI ENT: Airway patent Chest: Nonlabored breathing Skin: No visual rash, normal skin tone Neuro: Alert and oriented 3 Musculoskeletal: No gross abnormalities (Carlos Schaeffer) GENERAL: Patient is well-developed and well-nourished. Patient is nontoxic and well- hydrated and is in mild distress. ENT: Neck is soft and supple. No significant lymphadenopathy is noted. Oropharynx is clear. Moist mucous membranes. Neck has full range of motion without eliciting any pain. EYES: The sclera were anicteric and conjunctiva were pink and moist. Extraocular movements were intact and pupils were equal round and reactive to light. Eyelids were unremarkable. PULMONARY: Unlabored respirations. Good breath sounds bilaterally. No audible rales rhonchi or wheezing was noted. CARDIOVASCULAR: There is a regular rate and rhythm without any murmurs gallops or rubs. ABDOMEN: Soft and nontender with normal bowel sounds. SKIN: Skin is clear with no lesions or rashes and otherwise unremarkable. NEUROLOGIC: Patient is alert and oriented x3. Cranial nerves II through XII are grossly intact. Motor and sensory are also intact. Normal speech, volume and content. Symmetrical smile. MUSCULOSKELETAL: Normal extremities with adequate strength and full range of motion. No lower extremity swelling or edema. No calf tenderness. Palpating the left mid back was tender to palpation and it was reproducible she stated LYMPHATICS: No significant lymphadenopathy is noted PSYCHIATRIC: Normal psychiatric evaluation. (Jun Nagel) Course Vital Signs 11/09/24 11/09/24 16:55 18:32 Temperature 98.4 F Pulse Rate 86 81 Respiratory 22 18 Rate Blood Pressure 134/63 O2 Sat by Pulse 95 94 L Oximetry Chest Pain MDM <Carlos Schaeffer - Last Filed: 11/09/24 17:43> <Jun Nagel - Last Filed: 11/09/24 20:07> - MDM I completed the quick note portion of this chart signed DAYANA Cid (Carlos Schaeffer) EKG was interpreted by myself. EKG showed sinus rhythm at 86 bpm [place] end is 137 QRS is 86 QT interval is 383 QTc is 427. Patient's EKG shows no ST segment elevation or depression. Was pt. sent in by a medical professional or institution ([facility], ASSEMBLING FABRICATOR, urgent care, hospital, or snf...) When possible be specific @ -No Did you speak to anyone other than the patient for history (EMS, parent, family, police, friend...)? What history was obtained from this source @ -No Did you review nursing and triage notes (agree or disagree)? Why? @ -I reviewed and agree with nursing and triage notes Were old charts reviewed (outside hosp., previous admission, EMS record, old EKG, old radiological studies, urgent care reports/EKG's, snf records)? Report findings @ -No old charts were reviewed Differential Diagnosis? @ -Differential Chest Pain: Stable Angina, Unstable Angina, STEMI, NSTEMI Aortic Dissection, Pneumothorax, Musculoskeletal, Esophageal Spasm GERD, Cholecystitis, Pancreatitis, Zoster, this is not meant to be an all-inclusive list. EKG interpreted by me (3pts min.). @ -As above X-rays interpreted by me (1pt min.). @ -Chest x-ray showed no acute abnormalities CT interpreted by me (1pt min.). @ -None done U/S interpreted by me (1pt. min.). @ -None done What testing was considered but not performed or refused? (CT, X-rays, U/S, labs)? Why? @ -None What meds were considered but not given or refused? Why? @ -None Did you discuss the management of the patient with other professionals (professionals i.e. , PA, ASSEMBLING FABRICATOR, lab, RT, psych nurse, social welfare research worker, toolroom keeper, teacher, access control officer, showcase maker)? Give summary @ -No Was smoking cessation discussed for >3mins.? @ -No Was critical care preformed (if so, how long)? @ -No Were there social determinants of health that impacted care today? How? (Homelessness, low income, unemployed, alcoholism, drug addiction, transportation, low edu. Level, literacy, decrease access to med. care, assisted, rehab)? @ -No Was there de-escalation of care discussed even if they declined (Discuss DNR or withdrawal of care, Hospice)? DNR status @ -No What co-morbidities impacted this encounter? (DM, HTN, Smoking, COPD, CAD, Cancer, CVA, ARF, Chemo, Hep., AIDS, mental health diagnosis, sleep apnea, morbid obesity)? @ -None Was patient admitted / discharged? Hospital course, mention meds given and route, prescriptions, significant lab abnormalities, going to OR and other pertinent info. @ -Patient's lab work came back in normal range. I talked with the patient Boutt of being admitted she agreed about half an hour later she decided she did not want to stay and signed out AMA knowing the risks. Undiagnosed new problem with uncertain prognosis? @ -No Drug Therapy requiring intensive monitoring for toxicity (Heparin, Nitro, Insulin, Cardizem)? @ -No Were any procedures done? @ -No Diagnosis/symptom? @ -Default Acute, or Chronic, or Acute on Chronic? @ -Acute Uncomplicated (without systemic symptoms) or Complicated (systemic symptoms)? @ -Complicated Side effects of treatment? @ -No Exacerbation, Progression, or Severe Exacerbation? @ -No Poses a threat to life or bodily function? How? (Chest pain, [place], AL, pneumonia, PE, COPD, DKA, ARF, appy, cholecystitis, CVA, Diverticulitis, Homicidal, Suicidal, threat to staff... and all critical care pts) @ -Yes this could lead to an AL and endorgan dysfunction or possible (Jun Nagel) Disposition <Carlos Schaeffer - Last Filed: 11/09/24 17:43> Time of Disposition: 20:06 <Jun Nagel - Last Filed: 11/09/24 20:07> Clinical Impression: Chest pain Disposition: HOME SELF-CARE Instructions (If sedation given, give patient instructions): Chest Pain (ED) Additional Instructions: Patient should return if there is any new or worsening symptoms Referrals: Dayami Miranda DO [Primary Care Provider] - 1-2 days
[2024-11-09 17:46] LABS: ALT 14 U/L (4-34); AST 21 U/L (14-36); African American GFR (CKD) >90 (>60 ml/min/1.73 sqM); Albumin 4.3 g/dL (3.5-5.0); Alkaline Phosphatase 70 U/L (38-126); Anion Gap 13 mmol/L; Blood Urea Nitrogen 10 mg/dL (7-17); Carbon Dioxide 24 mmol/L (22-30); Chloride 95 mmol/L (98-107); Glucose 146 mg/dL (74-99); Magnesium 1.8 mg/dL (1.6-2.3); Non-African American GFR(CKD) >90 (>60 ml/min/1.73 sqM); Potassium 4.5 mmol/L (3.5-5.1); Sodium 132 mmol/L (137-145); Total Bilirubin 0.4 mg/dL (0.2-1.3)
--- NOTE | 2024-11-09 17:46 | XR ---
EXAMINATION TYPE: XR chest 2V DATE OF EXAM: 11/09/2024 5:24 PM COMPARISON: Chest radiographs from 09/14/2022. CLINICAL INDICATION: Female, 63 years old with history of Chest Pain; [facility] TECHNIQUE: XR chest 2V Frontal and lateral views of the chest. FINDINGS: Lungs/Pleura: There is no evidence of pleural effusion, focal consolidation, or pneumothorax. Pulmonary vascularity: Unremarkable. Heart/mediastinum: Cardiomediastinal silhouette is unremarkable. Atherosclerotic calcifications are seen in the aorta. Musculoskeletal: No acute osseous pathology. IMPRESSION: No acute cardiopulmonary disease/process. [facility], , 11/09/2024 5:44 PM
[2024-11-09 17:55] LABS: NT-Pro-B-Type Natriuretic Pept 79 pg/mL
[2024-11-09 17:58] LABS: INR 0.9 (<1.2); Partial Thromboplastin Time 25.8 sec (22.0-30.0); Prothrombin Time 9.9 sec (10.0-12.5)
[2024-11-09 20:03] VITALS: BP 130/68; PULSE 95; RESP 16
== END 2024-11-09 19:58 | disposition home or self-care (01) ==
LOC: EC 16:36
DX: R07.9 Chest pain, unspecified (principal); E11.9 Type 2 diabetes mellitus without complications; E78.5 Hyperlipidemia, unspecified; J44.9 Chronic obstructive pulmonary disease, unspecified; Z82.49 Family history of ischemic heart disease and other diseases of the circulatory system; F17.200 Nicotine dependence, unspecified, uncomplicated; Z88.1 Allergy status to other antibiotic agents; Z88.8 Allergy status to other drugs, medicaments and biological substances
CPT/HCPCS: 36415; 71046; 80053; 83735; 83880; 84484; 85025; 85379; 85610; 85730; 93005; 99285